=== PATIENT | female | born 1940 | race Caucasian/White ===

== ENCOUNTER 2016-05-11 15:39 | Emergency (ER) | payer MEDICARE ==
[~2016-05-11] VITALS: Ht 165.1 cm; Wt 101.4 kg
[~2016-05-11 15:39] MED LIST: AMLO5TAB22 PO; BIOT10004 PO; CALCTAB5 PO; CHLO25TA24 PO; COUM1TAB PO; K-TA10TA5 PO; LISI-363 PO; LUTE20CA PO; MAGN250T3 PO; METO25 PO; OMEG100037 PO; VITA500T83 PO; WARF-20 PO; [UNRECOGNIZED DRUG - CODE] PO
[2016-05-11 15:48] VITALS: BP 145/74; PULSE 69; RESP 16; TEMP 99.2; O2SAT 96
[2016-05-11] MEDS ORDERED: K-TA10TA PO (16:16)
[2016-05-11] MEDS ORDERED: LISI-515 PO (16:16)
[2016-05-11] MEDS ORDERED: COUM4TAB PO (16:16)
[2016-05-11] MEDS ORDERED: METO25TA3 PO (16:16)
[2016-05-11] MEDS ORDERED: FURO1TAB60 PO (16:16)
[2016-05-11] MEDS ORDERED: AMLO2.5T PO (16:17)
[2016-05-11 16:37] LABS: AUTOMATED NEUTROPHIL # 4.7 TH/MM3 (1.8-7.7); BASOPHIL % 0.3 % (0.0-2.0); EOSINOPHIL # 0.1 TH/MM3 (0-0.4); EOSINOPHIL % 1.8 % (0.0-4.0); HEMO FLAGS DIFF FINAL; LYMPH % 25.5 % (9.0-44.0); LYMPHOCYTE # 1.8 TH/MM3 (1.0-4.8); MEAN CELL VOLUME 79.9 FL (80.0-100.0); MEAN CORPUSCULAR HEMOGLOBIN 27.5 PG (27.0-34.0); MEAN CORPUSCULAR HGB CONC 34.5 % (32.0-36.0); MONO % 7.1 % (0.0-8.0); NEUT % 65.3 % (16.0-70.0); PLATELET COUNT 260 TH/MM3 (150-450); RED BLOOD COUNT 5.01 MIL/MM3 (4.00-5.30); RED CELL DISTRIBUTION WIDTH 12.3 % (11.6-17.2); WHITE BLOOD COUNT 7.1 TH/MM3 (4.0-11.0)
[2016-05-11 16:48] LABS: CHLORIDE 105 MEQ/L (98-107); POTASSIUM 4.2 MEQ/L (3.5-5.1); SODIUM (NA) 143 MEQ/L (136-145)
[2016-05-11 16:51] LABS: ANION GAP 7 MEQ/L (5-15); BICARBONATE 30.8 MEQ/L (21.0-32.0)
[2016-05-11 16:52] LABS: APTT (PATIENT) 35.9 SEC (24.3-30.1); BLOOD UREA NITROGEN 20 MG/DL (7-18); INTERNATIONAL NORMALIZED RATIO 2.2 RATIO; PROTHROMBIN TIME - PATIENT 25.1 SEC (9.8-11.6)
[2016-05-11 16:54] LABS: ALT (GPT) 28 U/L (10-53)
[2016-05-11 16:55] LABS: AST (GOT) 25 U/L (15-37); GLOMERULAR FILTRATION RATE 60 ML/MIN (>89)
[2016-05-11 16:56] LABS: TOTAL BILIRUBIN ADULT 0.9 MG/DL (0.2-1.0)
[2016-05-11 16:57] LABS: ALKALINE PHOSPHATASE 80 U/L (45-117)
--- NOTE | 2016-05-11 17:06 | PD ---
HPI Chief Complaint: Abnormal Results Time Seen by Provider: 15:54 Travel History International Travel<30 days: No Contact w/Intl Traveler<30days: No Traveled to known affect area: No History of Present Illness HPI This 76 year-old woman who presents to the emergency department referred in for an elevated potassium on a routine blood draw. They report that her potassium was 7.2. She has no symptoms. She states other than she feels a little bit tired. She is taking Lasix 40 mg daily as well as 10 mEq of potassium. She switched back to that from chlorthalidone about a couple weeks ago. She has A. fib she takes warfarin which is why she was getting INR drawn. She does take lisinopril for hypertension. She has some ankle swelling that been about the same as it typically has been recently. No change in urination. No palpitations or weakness. No other complaints. History Past Medical History Narrative Medical Lower extremity edema, on Lasix A. fib, on warfarin Hypertension Tetanus Vaccination: > 5 Years Influenza Vaccination: No Social History Alcohol Use: No Tobacco Use: No Allergies-Medications (Allergen,Severity, Reaction): Coded Allergies: No Known Allergies (Verified , 05/11/16) Reported Meds & Prescriptions Reported Meds & Active Scripts Active Reported Amlodipine (Amlodipine Besylate) 2.5 Mg Tab 2.5 Mg PO DAILY Lisinopril 20 Mg Tab 20 Mg PO BID K-Tab (Potassium Chloride) 10 Meq Tab 10 Meq PO DAILY Lasix (Furosemide) 40 Mg Tab 40 Mg PO DAILY Coumadin (Warfarin) 4 Mg Tab 4 Mg PO DAILY Metoprolol Tartrate 25 Mg Tab 25 Mg PO BID Review of Systems Except as stated in HPI: all other systems reviewed are Neg Physical Exam Narrative GENERAL: Well-appearing 76 old woman, no acute distress. SKIN: Warm and dry. HEAD: Atraumatic. Normocephalic. EYES: Pupils equal and round. No scleral icterus. No injection or drainage. ENT: No nasal bleeding or discharge. Mucous membranes pink and moist. NECK: Trachea midline. No JVD. CARDIOVASCULAR: Regular rate and rhythm. No murmur appreciated. RESPIRATORY: No accessory muscle use. Clear to auscultation. Breath sounds equal bilaterally. GASTROINTESTINAL: Abdomen soft, non-tender, nondistended. Hepatic and splenic margins not palpable. MUSCULOSKELETAL: No obvious deformities. No clubbing. No cyanosis. No edema. NEUROLOGICAL: Awake and alert. No obvious cranial nerve deficits. Motor grossly within normal limits. Normal speech. PSYCHIATRIC: Appropriate mood and affect; insight and judgment normal. Data Data Last Documented VS Vital Signs Date Time Temp Pulse Resp B/P Pulse Ox O2 Delivery O2 Flow Rate FiO2 05/11/16 15:48 99.2 69 16 145/74 96 Orders Complete Blood Count With Diff (05/11/16 15:55) Comprehensive Metabolic Panel (05/11/16 15:55) Act Partial Throm Time (Ptt) (05/11/16 15:55) Prothrombin Time / Inr (Pt) (05/11/16 15:55) Electrocardiogram (05/11/16 ) Iv Access Insert/Monitor (05/11/16 15:55) Labs Laboratory Tests Test 05/11/16 16:25 White Blood Count 7.1 TH/MM3 Red Blood Count 5.01 MIL/MM3 Hemoglobin 13.8 GM/DL Hematocrit 40.0 % Mean Corpuscular Volume 79.9 FL Mean Corpuscular Hemoglobin 27.5 PG Mean Corpuscular Hemoglobin 34.5 % Concent Red Cell Distribution Width 12.3 % Platelet Count 260 TH/MM3 Mean Platelet Volume 7.4 FL Neutrophils (%) (Auto) 65.3 % Lymphocytes (%) (Auto) 25.5 % Monocytes (%) (Auto) 7.1 % Eosinophils (%) (Auto) 1.8 % Basophils (%) (Auto) 0.3 % Neutrophils # (Auto) 4.7 TH/MM3 Lymphocytes # (Auto) 1.8 TH/MM3 Monocytes # (Auto) 0.5 TH/MM3 Eosinophils # (Auto) 0.1 TH/MM3 Basophils # (Auto) 0.0 TH/MM3 CBC Comment DIFF FINAL Differential Comment Prothrombin Time 25.1 SEC Prothromb Time International 2.2 RATIO Ratio Activated Partial 35.9 SEC Thromboplast Time Sodium Level 143 MEQ/L Potassium Level 4.2 MEQ/L Chloride Level 105 MEQ/L Carbon Dioxide Level 30.8 MEQ/L Anion Gap 7 MEQ/L Blood Urea Nitrogen 20 MG/DL Creatinine 0.92 MG/DL Estimat Glomerular Filtration 60 ML/MIN Rate Random Glucose 116 MG/DL Calcium Level 8.9 MG/DL Total Bilirubin 0.9 MG/DL Aspartate Amino Transf 25 U/L (AST/SGOT) Alanine Aminotransferase 28 U/L (ALT/SGPT) Alkaline Phosphatase 80 U/L Total Protein 7.2 GM/DL Albumin 3.5 GM/DL [facility] Medical Decision Making Medical Screen Exam Complete: Yes Emergency Medical Condition: Yes Interpretation(s) My review of EKG: Normal sinus rhythm at a rate of 64, left axis deviation, no definite evidence of acute ischemia. No evidence of hyperkalemia. CBC is unremarkable. CMP is unremarkable. Potassium is4.2. INR is 2.2 Differential Diagnosis Hyperkalemia, spurious lab, renal failure, other Narrative Course Medical decision making 76 year-old woman with no real symptoms, elevated potassium 7.2 on routine labs. Repeated here, potassium is normal. Previous lab is likely spurious or hemolyzed. Recommend outpatient follow-up. Diagnosis Primary Impression: Abnormal laboratory test Additional Instructions: Follow-up with her primary doctor in the next 2-4 days. Return to the emergency department for any new or worsening symptoms. Disposition: 01 DISCHARGE HOME Condition: Stable Juan Luis Grimes MD May 11, 2016 17:06
[2016-05-11 17:13] VITALS: BP 138/74
--- NOTE | 2016-05-12 12:49 | EKG ---
Date Performed: 05/11/2016 Time Performed: 16:35:34 PTAGE: 76 years EKG: Sinus rhythm with 1st degree A-V block Left axis deviation Incomplete RBBB Since previous tracing, no significant change noted Abnormal ECG PREVIOUS TRACING : 08/15/2015 07.10 DOCTOR: Brennan Haque Interpretating Date/Time 05/12/2016 12:48:52
== END 2016-05-11 17:15 | disposition home or self-care (01) ==
LOC: PHED 15:39
DX: E87.5 Hyperkalemia (principal); I10 Essential (primary) hypertension; R60.0 Localized edema; I48.91 Unspecified atrial fibrillation; I44.0 Atrioventricular block, first degree; I45.10 Unspecified right bundle-branch block; Z79.01 Long term (current) use of anticoagulants
CPT/HCPCS: 80053; 85025; 85610; 85730; 93005

== ENCOUNTER 2017-03-10 18:33 | Inpatient (IN) | payer MEDICARE ==
[~2017-03-10] VITALS: Ht 162.6 cm; Wt 96.7 kg
[~2017-03-10 18:33] MED LIST changes: +AMLO2.5T PO; -AMLO5TAB22 PO; -BIOT10004 PO; -CALCTAB5 PO; -CHLO25TA24 PO; -COUM1TAB PO; +COUM4TAB PO; +FURO1TAB60 PO; +K-TA10TA PO; -K-TA10TA5 PO; -LISI-363 PO; +LISI-515 PO; -LUTE20CA PO; -MAGN250T3 PO; -METO25 PO; +METO25TA3 PO; -OMEG100037 PO; -VITA500T83 PO; -WARF-20 PO; -[UNRECOGNIZED DRUG - CODE] PO
[2017-03-10 18:42] VITALS: BP 143/70; PULSE 73; RESP 17; TEMP 98.2; O2SAT 87
[2017-03-10 18:50] VITALS: O2SAT 97
[2017-03-10] MEDS ORDERED: WARF-23 PO (18:50)
[2017-03-10] MEDS ORDERED: SODIUM CHLORIDE 0.9% FLUSH 10 ML FLUSH IVF PRN (19:00)
--- NOTE | 2017-03-10 19:04 | PD ---
HPI Chief Complaint: Injury Time Seen by Provider: 19:00 Travel History International Travel<30 days: No Contact w/Intl Traveler<30days: No Traveled to known affect area: No History of Present Illness HPI 77-year-old female presents to the emergency department via EMS for evaluation after a fall that occurred just prior to arrival. Patient states her shoe got caught in the plastic over her crispness tree and she tripped and fell landing on her right arm. She did hit her head, but denies any loss of consciousness. She does have ecchymosis to the right lower eye orbit. She complaints of right arm pain. She has her arm in a splint by EMS. Patient received morphine 6 mg IV prior to arrival for pain. Patient denies any neck pain or back pain. No chest pain or abdominal pain. Nausea, vomiting, diarrhea. She has history of hypertension a show fibrillation. She is on Coumadin. Patient denies any hip or pelvic pain. Patient currently rates the pain 6/10 down from 10/10. The pain is stabbing. No radiation. The pain is in the right humerus and right forearm. Moderate severity. PFSH Past Medical History Hx Anticoagulant Therapy: Yes Arthritis: Yes Atrial Fibrillation: Yes Autoimmune Disease: No Blood Disorders: No Cancer: No Cardiovascular Problems: Yes (htn on meds, a-fib) Diabetes: Yes (borderline) Patient Takes Glucophage: No Diminished Hearing: No Endocrine: No Genitourinary: Yes (FREQUENT URINATION) Headaches: Yes Hepatitis: No Hiatal Hernia: No Hypertension: Yes Immune Disorder: No Musculoskeletal: Yes (PAIN AND WEAKNESS BACK) Neurologic: No Psychiatric: No Reproductive: No Respiratory: No Thyroid Disease: No Tetanus Vaccination: > 5 Years Influenza Vaccination: No ?: Not Past Surgical History Abdominal Surgery: Yes (APPENDECTOMY) AICD: No Appendectomy: Yes Cardiac Surgery: No Cholecystectomy: Yes Ear Surgery: No Endocrine Surgery: No Eye Surgery: No Gynecologic Surgery: Yes (REPAIR PELVIC PROLAPSE) Joint Replacement: Yes ([place] TKR) Neurologic Surgery: No Oral Surgery: No Pacemaker: No Thoracic Surgery: No Other Surgery: Yes Social History Alcohol Use: No Tobacco Use: No Substance Use: No Allergies-Medications (Allergen,Severity, Reaction): Coded Allergies: No Known Allergies (Verified Adverse Reaction, Unknown, 03/10/17) Reported Meds & Prescriptions Reported Meds & Active Scripts Active Reported Warfarin 5 Mg Tab 5 Mg PO DAILY Amlodipine (Amlodipine Besylate) 2.5 Mg Tab 2.5 Mg PO DAILY Lisinopril 20 Mg Tab 20 Mg PO BID K-Tab (Potassium Chloride) 10 Meq Tab 10 Meq PO EVERY OTHER DAY Lasix (Furosemide) 40 Mg Tab 40 Mg PO DAILY Coumadin (Warfarin) 4 Mg Tab 4 Mg PO DAILY 5 Days Metoprolol Tartrate 25 Mg Tab 25 Mg PO BID Review of Systems Except as stated in HPI: all other systems reviewed are Neg Physical Exam Narrative GENERAL: Well-nourished, well-developed female patient, afebrile. SKIN: Focused skin assessment warm/dry. HEAD: Normocephalic. Atraumatic. EYES: No scleral icterus. No injection or drainage. ENT: Mucosa pink and moist. No erythema or exudates. No uvular edema. No uvular , palatal, or tonsillar deviation. Airway patent. Nasal turbinates appear normal without nasal blood, purulent drainage or septal hematoma. Bilateral tympanic membranes are clear without erythema or perforation. NECK: Supple, trachea midline. No JVD or lymphadenopathy. CARDIOVASCULAR: Regular rate and rhythm without murmurs, gallops, or rubs. I lateral radial and pedal pulses are 2+. RESPIRATORY: Breath sounds equal bilaterally. No accessory muscle use. Lungs sounds are clear to auscultation. GASTROINTESTINAL: Abdomen soft, non-tender, nondistended. MUSCULOSKELETAL: No cyanosis, or edema. Patient has tenderness over right humerus and mild tenderness over right forearm. BACK: Nontender without obvious deformity. No CVA tenderness. Data Data Last Documented VS Vital Signs Date Time Temp Pulse Resp B/P (MAP) Pulse Ox O2 Delivery O2 Flow Rate FiO2 03/10/17 20:55 65 16 133/61 (85) 97 Room Air 03/10/17 18:52 2.00 03/10/17 18:42 98.2 Orders Orders Basic Metabolic Panel (Bmp) (03/10/17 18:57) Complete Blood Count With Diff (03/10/17 18:57) Prothrombin Time / Inr (Pt) (03/10/17 18:57) Act Partial Throm Time (Ptt) (03/10/17 18:57) Chest, Single Ap (03/10/17 18:57) Ct Brain W/O Iv Contrast(Rout) (03/10/17 18:57) Ct Cerv Spine W/O Contrast (03/10/17 18:57) Ct Facial Bones W/O Iv Cont (03/10/17 18:57) Iv Access Insert/Monitor (03/10/17 18:57) Ecg Monitoring (03/10/17 18:57) Oximetry (03/10/17 18:57) Oxygen Administration (03/10/17 18:57) Sodium Chloride 0.9% Flush (Ns Flush) (03/10/17 19:00) Humerus (Min 2vws) (03/10/17 ) Forearm, One View (03/10/17 ) Morphine Inj (Morphine Inj) (03/10/17 20:15) Splint Or Brace Apply/Monitor (03/10/17 21:16) Morphine Inj (Morphine Inj) (03/10/17 22:00) Humerus (Min 2vws) (03/10/17 ) Type And Screen (03/10/17 22:36) Fresh Frozen Plasma (Ffp) (03/10/17 22:36) Blood Product Administration (03/10/17 22:36) Sodium Chlor 0.9% 250 Ml Inj (Ns 250 Ml (03/10/17 22:45) Phytonadione Inj (Vitamin K Inj) (03/10/17 22:45) Npo After Midnight W/ Po Meds (03/11/17 Breakfast) Prothrombin Time / Inr (Pt) (03/11/17 05:00) Consult Orthopedic (03/10/17 ) Electrocardiogram (03/10/17 ) Splint Or Brace Apply/Monitor (03/10/17 22:39) Admit Order (Ed Use Only) (03/10/17 22:39) Labs Laboratory Tests Test 03/10/17 20:10 White Blood Count 11.5 TH/MM3 Red Blood Count 4.89 MIL/MM3 Hemoglobin 13.2 GM/DL Hematocrit 40.1 % Mean Corpuscular Volume 82.0 FL Mean Corpuscular Hemoglobin 27.1 PG Mean Corpuscular Hemoglobin Concent 33.0 % Red Cell Distribution Width 14.2 % Platelet Count 209 TH/MM3 Mean Platelet Volume 8.0 FL Neutrophils (%) (Auto) 85.8 % Lymphocytes (%) (Auto) 9.0 % Monocytes (%) (Auto) 4.9 % Eosinophils (%) (Auto) 0.2 % Basophils (%) (Auto) 0.1 % Neutrophils # (Auto) 9.9 TH/MM3 Lymphocytes # (Auto) 1.0 TH/MM3 Monocytes # (Auto) 0.6 TH/MM3 Eosinophils # (Auto) 0.0 TH/MM3 Basophils # (Auto) 0.0 TH/MM3 CBC Comment DIFF FINAL Differential Comment Prothrombin Time 23.8 SEC Prothromb Time International Ratio 2.4 RATIO Activated Partial Thromboplast Time 36.8 SEC Blood Urea Nitrogen 23 MG/DL Creatinine 0.75 MG/DL Random Glucose 155 MG/DL Calcium Level 8.7 MG/DL Sodium Level 140 MEQ/L Potassium Level 4.0 MEQ/L Chloride Level 106 MEQ/L Carbon Dioxide Level 25.8 MEQ/L Anion Gap 8 MEQ/L Estimat Glomerular Filtration Rate 75 ML/MIN MDM Medical Decision Making Medical Screen Exam Complete: Yes Emergency Medical Condition: Yes Medical Record Reviewed: Yes Interpretation(s) CT brain CONCLUSION: 1. No acute infarct, acute hemorrhage, mass effect or extra axial fluid collections. 2. Mild cerebral atrophy. 3. Mild periventricular and subcortical white matter small vessel ischemic changes bilaterally. CT cervical spine CONCLUSION: 1. No acute fracture or prevertebral soft tissue swelling. 2. Moderate neural foraminal narrowing bilaterally at C5-6. 3. No bony spinal canal stenosis. 4. Cervical spondylosis at C5-6 and to a lesser extent at C4-5 and C3-4. CT facial bones CONCLUSION: 1. No acute facial bone fracture. 2. Mild mucosal thickening within the left maxillary sinus and minimal mucosal thickening within the right maxillary sinus. 3. Right-sided nannette bullosa. X-ray right humerus CONCLUSION: Acute displaced spiral midshaft fracture of the right humerus. X-ray right forearm CONCLUSION: 1. No acute fracture or desiccation of the radius or ulna. 2. Moderate osteoarthritis involving the first carpometacarpal joint. x-ray chest - CONCLUSION: Mild cardiomegaly and minimal central pulmonary vascular congestion. Differential Diagnosis Fracture versus dislocation versus contusion versus sprain versus closed head injury versus intracranial abnormality versus facial contusion versus facial fracture versus cervical strain versus cervical fracture Narrative Course 77-year-old female presents to the emergency department via EMS after she tripped and fell suffering a right arm injury. She is on Coumadin and did hit her head. CT the brain, CT of the facial bones, CT of the cervical spine are ordered and pending. X-ray of the right humerus and right forearm, x-ray of the chest are ordered and pending. CT of the brain shows no acute abnormality. CT of the facial bones shows no acute facial bone fracture. CT of the cervical spine shows no acute fracture. X-ray of the right humerus shows an acute displaced spiral midshaft fracture of the right humerus. X-ray of the right forearm shows no acute fracture. X-ray of the chest shows mild cardiomegaly and minimal central pulmonary vascular congestion. CBC shows slight leukocytosis 11.5. BMP shows no acute abnormality. PTT is 23.8, INR 2.4, PTT 26.8. Orthopedist salesperson furniture is paged. I spoke to Americo Garcia, on-call for Dr. Snyder. He would like a coaptation splint to be applied and then re-x-rayed to see if the bones are better aligned. Coaptation splint is applied. X-ray is repeated. After x-ray was back, I did contact TITO Gibson again. The displacement and angulation actually looks slightly worse after splint is applied. He agrees to this. He would like the patient to be admitted to medicine. He would like sling and swath applied. He would like the patient to receive 10 mg of vitamin K, 1 unit of FFP. The patient is to be nothing by mouth after midnight, INR to be repeated at 5 AM. He would like the INR to be between 1.3-1.4. I discussed this with the patient who verbalizes agreement. Patient is admitted to Dr. Peñaloza. Diagnosis Primary Impression: Closed right humeral fracture Qualified Codes: S42.341A - Displaced spiral fracture of shaft of humerus, right arm, initial encounter for closed fracture Admitting Information Admitting Physician Requests: Jesusita Andre Mar 10, 2017 19:04
[2017-03-10 19:11] VITALS: RESP 18; O2SAT 97
--- NOTE | 2017-03-10 20:04 | RADRPT ---
EXAM DATE/TIME: 03/10/2017 19:47 [facility] COMPARISON: No previous studies available for comparison. INDICATIONS : Trauma, fall today. RADIATION DOSE: 54.20 CTDIvol (mGy) MEDICAL HISTORY : Hypertension. SURGICAL HISTORY : Tubal ligation. ENCOUNTER: Initial ACUITY: 1 day PAIN SCALE: 0/10 LOCATION: Bilateral head TECHNIQUE: Multiple contiguous axial images were obtained of the head. Using automated exposure control and adj ustment of the mA and/or kV according to patient size, radiation dose was kept as low as reasonably a chievable to obtain optimal diagnostic quality images. DICOM format image data is available electro nically for review and comparison. FINDINGS: CEREBRUM: Mild cerebral atrophy is noted. No evidence of midline shift, mass lesion, hemorrhage or acute infarc tion. No extra-axial fluid collections are seen. Mild periventricular and subcortical white matter s mall vessel ischemic changes are noted bilaterally. POSTERIOR FOSSA: The cerebellum and brainstem are intact. The 4th ventricle is midline. The cerebellopontine angle i s unremarkable. EXTRACRANIAL: The visualized portion of the orbits is intact. SKULL: The calvaria is intact. No evidence of skull fracture. CONCLUSION: 1. No acute infarct, acute hemorrhage, mass effect or extra axial fluid collections. 2. Mild cerebral atrophy. 3. Mild periventricular and subcortical white matter small vessel ischemic changes bilaterally. Alvarez Briscoe MD on March 10, 2017 at 20:00 Board Certified Radiologist. This report was verified electronically.
--- NOTE | 2017-03-10 20:11 | RADRPT ---
EXAM DATE/TIME: 03/10/2017 19:47 [facility] COMPARISON: No previous studies available for comparison. INDICATIONS : Trauma, fall today. RADIATION DOSE: 42.99 CTDIvol (mGy) MEDICAL HISTORY : Hypertension. SURGICAL HISTORY : Tubal ligation. ENCOUNTER: Initial ACUITY: 1 day PAIN SCALE: 0/10 LOCATION: Bilateral neck TECHNIQUE: Volumetric scanning of the cervical spine was performed. Multiplanar reconstructions in the sagittal, coronal and oblique axial planes were performed. Using automated exposure control and adjustment o f the mA and/or kV according to patient size, radiation dose was kept as low as reasonably achievable to obtain optimal diagnostic quality images. DICOM format image data is available electronically f or review and comparison. FINDINGS: VERTEBRAE: Normal vertebral body height. ALIGNMENT: No evidence of subluxation. C2-C3: The bony spinal canal is normal in size. No evidence of disc bulge or herniation. The neural forami na are bilaterally patent. C3-C4: The bony spinal canal is normal in size. No evidence of disc bulge or herniation. The neural forami na are bilaterally patent. C4-C5: The bony spinal canal is normal in size. No evidence of disc bulge or herniation. The neural forami na are bilaterally patent. C5-C6: The bony spinal canal is normal in size. No evidence of disc bulge or herniation. Moderate neural fo raminal narrowing is noted bilaterally. C6-C7: The bony spinal canal is normal in size. No evidence of disc bulge or herniation. The neural forami na are bilaterally patent. C7-T1: The bony spinal canal is normal in size. No evidence of disc bulge or herniation. The neural forami na are bilaterally patent. CONCLUSION: 1. No acute fracture or prevertebral soft tissue swelling. 2. Moderate neural foraminal narrowing bilaterally at C5-6. 3. No bony spinal canal stenosis. 4. Cervical spondylosis at C5-6 and to a lesser extent at C4-5 and C3-4. Alvarez Briscoe MD on March 10, 2017 at 20:06 Board Certified Radiologist. This report was verified electronically.
--- NOTE | 2017-03-10 20:14 | RADRPT ---
EXAM DATE/TIME: 03/10/2017 19:47 [facility] COMPARISON: No previous studies available for comparison. INDICATIONS : Trauma, fall today. RADIATION DOSE: 56.76 CTDIvol (mGy) MEDICAL HISTORY : Hypertension. SURGICAL HISTORY : Tubal ligation. ENCOUNTER: Initial ACUITY: 1 day PAIN SCORE: 0/10 LOCATION: Bilateral face TECHNIQUE: Volumetric scanning of the facial bones was performed. Using automated exposure control and adjustme nt of the mA and/or kV according to patient size, radiation dose was kept as low as reasonably achiev able to obtain optimal diagnostic quality images. DICOM format image data is available electronicall y for review and comparison. FINDINGS: ORBITS: The orbital and infraorbital osseous structures are intact. The retroconal structures have a normal configuration. No radiopaque foreign bodies are seen. NASAL BONE: The nasal bone and maxillary spine are intact ZYGOMATIC ARCHES: Symmetric without evidence of fracture. SINUSES: Mild mucosal thickening is noted within the left maxillary sinus. Minimal mucosal thickening is noted within the right maxillary sinus. The ethmoid and frontal sinuses are intact. No air-fluid levels s een. NASAL CAVITY: The nasal septum is intact and midline. The lacrimal ducts are intact. Right-sided nannette bullosa is noted. SOFT TISSUES: No radiopaque foreign bodies seen. No soft-tissue swelling is seen. INTRACRANIAL: No intracranial air seen. CRIBIFORM PLATE: Grossly intact. CONCLUSION: 1. No acute facial bone fracture. 2. Mild mucosal thickening within the left maxillary sinus and minimal mucosal thickening within the right maxillary sinus. 3. Right-sided nannette bullosa. Alvarez Briscoe MD on March 10, 2017 at 20:09 Board Certified Radiologist. This report was verified electronically.
[2017-03-10] MEDS ORDERED: MORPHINE SULFATE 4 MG/ML INJ IV PUSH ONE ×2 (20:15→22:00)
[2017-03-10 20:39] LABS: AUTOMATED NEUTROPHIL # 9.9 TH/MM3 (1.8-7.7); BASOPHIL % 0.1 % (0.0-2.0); EOSINOPHIL % 0.2 % (0.0-4.0); HEMATOCRIT 40.1 % (35.0-46.0); HEMO FLAGS DIFF FINAL; MEAN CORPUSCULAR HEMOGLOBIN 27.1 PG (27.0-34.0); MONO % 4.9 % (0.0-8.0); NEUT % 85.8 % (16.0-70.0); PLATELET COUNT 209 TH/MM3 (150-450); RED BLOOD COUNT 4.89 MIL/MM3 (4.00-5.30); RED CELL DISTRIBUTION WIDTH 14.2 % (11.6-17.2); WHITE BLOOD COUNT 11.5 TH/MM3 (4.0-11.0)
--- NOTE | 2017-03-10 20:48 | RADRPT ---
EXAM DATE/TIME: 03/10/2017 19:41 [facility] COMPARISON: No previous studies available for comparison. INDICATIONS : Trauma. Patient fell today. MEDICAL HISTORY : Hypertension. A-fib. SURGICAL HISTORY : Appendectomy. Cholecystectomy. Tubal ligation. ENCOUNTER: Initial ACUITY: 1 day PAIN SCORE: 0/10 LOCATION: Bilateral chest FINDINGS: Mild cardiomegaly is noted. Minimal central pulmonary vascular congestion is noted. No acute focal pu lmonary tubes noted. CONCLUSION: Mild cardiomegaly and minimal central pulmonary vascular congestion. Alvarez Briscoe MD on March 10, 2017 at 20:44 Board Certified Radiologist. This report was verified electronically.
[2017-03-10 20:50] LABS: APTT (PATIENT) 36.8 SEC (24.3-30.1); INTERNATIONAL NORMALIZED RATIO 2.4 RATIO; PROTHROMBIN TIME - PATIENT 23.8 SEC (9.8-11.6)
--- NOTE | 2017-03-10 20:50 | RADRPT ---
EXAM DATE/TIME: 03/10/2017 19:30 [facility] COMPARISON: No previous studies available for comparison. INDICATIONS : Right arm pain after fall. MEDICAL HISTORY : None. SURGICAL HISTORY : None. ENCOUNTER: Initial ACUITY: 1 day PAIN SCORE: 10/10 LOCATION: Right humerus. FINDINGS: There is an acute displaced spiral midshaft fracture of the right humerus. CONCLUSION: Acute displaced spiral midshaft fracture of the right humerus. Alvarez Briscoe MD on March 10, 2017 at 20:46 Board Certified Radiologist. This report was verified electronically.
--- NOTE | 2017-03-10 20:51 | RADRPT ---
EXAM DATE/TIME: 03/10/2017 19:33 [facility] COMPARISON: No previous studies available for comparison. INDICATIONS : Right arm pain after fall. MEDICAL HISTORY : None. SURGICAL HISTORY : None. ENCOUNTER: Initial ACUITY: 1 day PAIN SCORE: 5/10 LOCATION: Right forearm. FINDINGS: A single view of the right forearm was performed. The radius and ulna are grossly intact. No soft t issue abnormality is identified. No joint dislocation is seen at the wrist or elbow at this time. Mo derate osteoarthritis is noted involving the first carpometacarpal joint. CONCLUSION: 1. No acute fracture or desiccation of the radius or ulna. 2. Moderate osteoarthritis involving the first carpometacarpal joint. Alvarez Briscoe MD on March 10, 2017 at 20:47 Board Certified Radiologist. This report was verified electronically.
[2017-03-10 20:55] VITALS: BP 133/61; PULSE 65; RESP 16; O2SAT 97
[2017-03-10 21:18] LABS: BICARBONATE 25.8 MEQ/L (21.0-32.0)
--- NOTE | 2017-03-10 22:30 | RADRPT ---
EXAM DATE/TIME: 03/10/2017 22:15 [facility] COMPARISON: HUMERUS RIGHT (MIN 2VWS), March 10, 2017, 19:30. INDICATIONS : Post reduction humerus. MEDICAL HISTORY : Hypertension. SURGICAL HISTORY : Tubal ligation. ENCOUNTER: Subsequent ACUITY: 1 day PAIN SCORE: 10/10 LOCATION: Right humerus. FINDINGS: There is persistent significant displacement of the spiral midshaft fracture of the right humerus. CONCLUSION: Persistent significant displacement of the spiral midshaft fracture of right humerus. Alvarez Briscoe MD on March 10, 2017 at 22:26 Board Certified Radiologist. This report was verified electronically.
[2017-03-10] MEDS ORDERED: PHYTONADIONE 10 MG/ML VIAL SQ ONE (22:45)
[2017-03-10] MEDS ORDERED: SODIUM CHLOR 0.9% 250 ML INJ 250 ML IV ONE (22:45)
[2017-03-10] MEDS ORDERED: SENNOSIDES 8.6 MG TAB PO PRN (23:30)
[2017-03-10] MEDS ORDERED: BISACODYL 10 MG SUPP RECTAL PRN (23:30)
[2017-03-10] MEDS ORDERED: LACTULOSE SYRUP 20 GM/30 ML CUP PO PRN (23:30)
[2017-03-10] MEDS ORDERED: NALOXONE HCL 0.4 MG/ML AMP IV PUSH PRN (23:30)
[2017-03-10] MEDS ORDERED: ONDANSETRON HCL 4 MG/2 ML VIAL IVP PRN (23:30)
[2017-03-10] MEDS ORDERED: SODIUM CHLORIDE 0.9% FLUSH 10 ML FLUSH IV FLUSH PRN (23:30)
[2017-03-10] MEDS ORDERED: MAGNESIUM HYDROXIDE SUSP 30 ML CUP PO PRN (23:30)
[2017-03-10 23:36] VITALS: BP 134/67; PULSE 72; RESP 18; O2SAT 97
--- NOTE | 2017-03-10 23:37 | HHI.HP ---
HPI Service [facility] Hospitalists Primary Care Physician Margret Lincoln MD Admission Diagnosis right midshaft humeral fracture Chief Complaint: accidental fall at home with pain to humerus Travel History International Travel<30 Days: No Contact w/Intl Traveler <30 Da: No Traveled to Known Affected Are: No History of Present Illness 77-year-old female presents to the emergency department via EMS for evaluation after a fall that occurred just prior to arrival. Patient states her shoe got caught in the plastic over her [employer] tree and she tripped and fell landing on her right arm. She did hit her head, but denies any loss of consciousness. She does have ecchymosis to the right lower eye orbit. She complaints of right arm pain. She has her arm in a splint by EMS. Patient received morphine 6 mg IV prior to arrival for pain. Patient denies any neck pain or back pain. No chest pain or abdominal pain. Nausea, vomiting, diarrhea. She has history of hypertension and atrial fibrillation. She is on Coumadin. Patient denies any hip or pelvic pain. Patient currently rates the pain 6/10 down from 10/10. The pain is stabbing. No radiation. The pain is in the right humerus and right forearm. Moderate severity. Full xrays of neck head no acute abnormalities but xray humerus shows fracture splinted and will require surgery. Review of Systems Musculoskeletal: COMPLAINS OF: Joint pain Past Family Social History Past Medical History hypertension,atrail fib chronic coumadin Past Surgical History gall bladder appendix,bilateral knee replacement pelvic surgery in past Reported Medications Warfarin 5 Mg Tab 5 Mg PO DAILY Amlodipine (Amlodipine Besylate) 2.5 Mg Tab 2.5 Mg PO DAILY Lisinopril 20 Mg Tab 20 Mg PO BID K-Tab (Potassium Chloride) 10 Meq Tab 10 Meq PO EVERY OTHER DAY Lasix (Furosemide) 40 Mg Tab 40 Mg PO DAILY Coumadin (Warfarin) 4 Mg Tab 4 Mg PO DAILY 5 Days Metoprolol Tartrate 25 Mg Tab 25 Mg PO BID Allergies: Coded Allergies: No Known Allergies (Verified Adverse Reaction, Unknown, 03/10/17) Social History NS,ND Physical Exam Vital Signs Vital Signs Date Time Temp Pulse Resp B/P (MAP) Pulse Ox O2 Delivery O2 Flow Rate FiO2 03/10/17 20:55 65 16 133/61 (85) 97 Room Air 03/10/17 19:11 97 Room Air 03/10/17 19:11 18 97 Room Air 03/10/17 18:52 59 18 97 2.00 03/10/17 18:50 97 Nasal Cannula 3.00 03/10/17 18:42 98.2 73 17 143/70 (94) 87 Physical Exam GENERAL: This is a well-nourished, well-developed patient, in no apparent distress. SKIN: No rashes, ecchymoses or lesions. Cool and dry. HEAD: Atraumatic. Normocephalic. No temporal or scalp tenderness. EYES: Pupils equal round and reactive. Extraocular motions intact. No scleral icterus. No injection or drainage. ENT: Nose without bleeding, purulent drainage or septal hematoma. Throat without erythema, tonsillar hypertrophy or exudate. Uvula midline. Airway patent. NECK: Trachea midline. No JVD or lymphadenopathy. Supple, nontender, no meningeal signs. CARDIOVASCULAR: Regular rate and rhythm without murmurs, gallops, or rubs. RESPIRATORY: Clear to auscultation. Breath sounds equal bilaterally. No wheezes , rales, or rhonchi. GASTROINTESTINAL: Abdomen soft, non-tender, nondistended. No hepato-splenomegaly , or palpable masses. No guarding. MUSCULOSKELETAL: Extremities without clubbing, cyanosis, or edema. RT arm pain on movement effusion, or edema noted. No calf tenderness. Negative Homans sign bilaterally. NEUROLOGICAL: Awake and alert. Cranial nerves II through XII intact. Motor and sensory grossly within normal limits. Five out of 5 muscle strength in all muscle groups. Normal speech. Laboratory Laboratory Tests Test 03/10/17 20:10 White Blood Count 11.5 Red Blood Count 4.89 Hemoglobin 13.2 Hematocrit 40.1 Mean Corpuscular Volume 82.0 Mean Corpuscular Hemoglobin 27.1 Mean Corpuscular Hemoglobin Concent 33.0 Red Cell Distribution Width 14.2 Platelet Count 209 Mean Platelet Volume 8.0 Neutrophils (%) (Auto) 85.8 Lymphocytes (%) (Auto) 9.0 Monocytes (%) (Auto) 4.9 Eosinophils (%) (Auto) 0.2 Basophils (%) (Auto) 0.1 Neutrophils # (Auto) 9.9 Lymphocytes # (Auto) 1.0 Monocytes # (Auto) 0.6 Eosinophils # (Auto) 0.0 Basophils # (Auto) 0.0 CBC Comment DIFF FINAL Differential Comment Prothrombin Time 23.8 Prothromb Time International Ratio 2.4 Activated Partial Thromboplast Time 36.8 Blood Urea Nitrogen 23 Creatinine 0.75 Random Glucose 155 Calcium Level 8.7 Sodium Level 140 Potassium Level 4.0 Chloride Level 106 Carbon Dioxide Level 25.8 Anion Gap 8 Estimat Glomerular Filtration Rate 75 Result Diagram: 03/10/17200903/10/172009 Imaging Last [address] 03/10/171856 Signed Impressions: Service Date/Time: Friday, March 10, 2017 19:47 - CONCLUSION: 1. No acute facial bone fracture. 2. Mild mucosal thickening within the left maxillary sinus and minimal mucosal thickening within the right maxillary sinus. 3. Right-sided nannette bullosa. Alvarez Briscoe MD Head CT 03/10/171856 Signed Impressions: Service Date/Time: Friday, March 10, 2017 19:47 - CONCLUSION: 1. No acute infarct, acute hemorrhage, mass effect or extra axial fluid collections. 2. Mild cerebral atrophy. 3. Mild periventricular and subcortical white matter small vessel ischemic changes bilaterally. Alvarez Briscoe MD Chest X-Ray 03/10/171856 Signed Impressions: Service Date/Time: Friday, March 10, 2017 19:41 - CONCLUSION: Mild cardiomegaly and minimal central pulmonary vascular congestion. Alvarez Briscoe MD Cervical Spine CT 03/10/171856 Signed Impressions: Service Date/Time: Friday, March 10, 2017 19:47 - CONCLUSION: 1. No acute fracture or prevertebral soft tissue swelling. 2. Moderate neural foraminal narrowing bilaterally at C5-6. 3. No bony spinal canal stenosis. 4. Cervical spondylosis at C5-6 and to a lesser extent at C4-5 and C3-4. Alvarez Briscoe MD Radius/Ulna X-Ray 03/10/17 0000 Signed Impressions: Service Date/Time: Friday, March 10, 2017 19:33 - CONCLUSION: 1. No acute fracture or desiccation of the radius or ulna. 2. Moderate osteoarthritis involving the first carpometacarpal joint. Alvarez Briscoe MD Humerus X-Ray 03/10/17 0000 Signed Impressions: Service Date/Time: Friday, March 10, 2017 22:15 - CONCLUSION: Persistent significant displacement of the spiral midshaft fracture of right humerus. Alvarez Briscoe MD Humerus X-Ray 03/10/17 0000 Signed Impressions: Service Date/Time: Friday, March 10, 2017 19:30 - CONCLUSION: Acute displaced spiral midshaft fracture of the right humerus. Alvarez Briscoe MD Course splint and given pain medication is on coumadin given vit k and will get FFP Caprini VTE Risk Assessment Caprini VTE Risk Assessment: Mod/High Risk (score >= 2) Caprini Risk Assessment Model Point Value = 1 Point Value = 2 Point Value = 3 Point Value = 5 Age 41-60 Minor surgery BMI > 25 kg/m2 Swollen legs Varicose veins or History of unexplained or recurrent spontaneous Oral contraceptives or hormone replacement Sepsis (< 1 month) Serious lung disease, including pneumonia (< 1 month) Abnormal pulmonary function Acute myocardial infarction Congestive heart failure (< 1 month) History of inflammatory bowel disease Medical patient at bed rest Age 61-74 Arthroscopic surgery Major open surgery (> 45 min) Laparoscopic surgery (> 45 min) Malignancy Confined to bed (> 72 hours) Immobilizing plaster cast Central venous access Age >= 75 History of VTE Family history of VTE Factor V Leiden Prothrombin [id number] Lupus anticoagulant Anticardiolipin antibodies Elevated serum homocysteine Heparin-induced thrombocytopenia Other congenital or acquired thrombophilia Stroke (< 1 month) Elective arthroplasty Hip, pelvis, or leg fracture Acute spinal cord injury (< 1 month) Prophylaxis Regimen Total Risk Factor Score Risk Level Prophylaxis Regimen 0-1 Low Early ambulation 2 Moderate Order ONE of the following: *Sequential Compression Device (SCD) *Heparin 5000 units SQ BID 3-4 Higher Order ONE of the following medications: *Heparin 5000 units SQ TID *Enoxaparin/Lovenox 40 mg SQ daily (WT < 150 kg, CrCl > 30 mL/min) *Enoxaparin/Lovenox 30 mg SQ daily (WT < 150 kg, CrCl > 10-29 mL/min) *Enoxaparin/Lovenox 30 mg SQ BID (WT < 150 kg, CrCl > 30 mL/min) AND/OR *Sequential Compression Device (SCD) 5 or more Highest Order ONE of the following medications: *Heparin 5000 units SQ TID (Preferred with Epidurals) *Enoxaparin/Lovenox 40 mg SQ daily (WT < 150 kg, CrCl > 30 mL/min) *Enoxaparin/Lovenox 30 mg SQ daily (WT < 150 kg, CrCl > 10-29 mL/min) *Enoxaparin/Lovenox 30 mg SQ BID (WT < 150 kg, CrCl > 30 mL/min) AND *Sequential Compression Device (SCD) Assessment and Plan Problem List: (1) Closed right humeral fracture ICD Codes: S42.301A - Unspecified fracture of shaft of humerus, right arm, initial encounter for closed fracture Status: Acute Plan: ortho consult npo and pain medication (2) Atrial fibrillation ICD Codes: I48.91 - Unspecified atrial fibrillation Status: Chronic Plan: continue b mellissa hold coumadin vit k and FFP (3) Hypertension ICD Codes: I10 - Essential (primary) hypertension Status: Chronic Plan: continue home medications Assessment and Plan further plan as case develops Code Status full Discussed Condition With patient Physician Certification 2 Midnight Certification Type: Admission for Inpatient Services Order for Inpatient Services The services are ordered in accordance with Medicare regulations or non- Medicare payer requirements, as applicable. In the case of services not specified as inpatient-only, they are appropriately provided as inpatient services in accordance with the 2-midnight benchmark. Estimated LOS (days): 3 3 days is the estimated time the patient will need to remain in the hospital, assuming treatment plan goals are met and no additional complications. Post-Hospital Plan: Not yet determined Problem Qualifiers (1) Closed right humeral fracture: Qualified Codes: S42.341A - Displaced spiral fracture of shaft of humerus, right arm, initial encounter for closed fracture Angel Torres MD Mar 10, 2017 23:37
[2017-03-10] MEDS ORDERED: PILL SPLITTER OTHER PRN (23:45)
[2017-03-11] VITALS (21 sets, daily range): BP systolic 100–135; BP diastolic 50–69; PULSE 57–81; RESP 16–19; TEMP 96–99.9; O2SAT 92–96
[2017-03-11] MEDS ORDERED: LACTATED RINGER'S 1000 ML IV PRN (01:15)
[2017-03-11] MEDS ORDERED: SODIUM CHLORID 0.9% 500 ML IV PRN (01:15)
[2017-03-11] MEDS ORDERED: POVIDONE IODINE 5% (ANTISEPSIS KIT) 4 APPLICATIONS EACH NARE PRN (01:15)
[2017-03-11] MEDS ORDERED: CHLORHEXIDINE GLUCONATE 2 % 1 PACK (2 CLOTHS) TOPICAL PRN (01:15)
[2017-03-11 04:51] LABS: INTERNATIONAL NORMALIZED RATIO 1.7 RATIO; PROTHROMBIN TIME - PATIENT 17.7 SEC (9.8-11.6)
--- NOTE | 2017-03-11 06:51 | PD.ORT.PN ---
Subjective Subjective Remarks Fall at home when decorating [employer] tree. Right humerus fracture. Denies any numbness or tingling distally Objective Vitals Vital Signs Date Time Temp Pulse Resp B/P (MAP) Pulse Ox O2 Delivery O2 Flow Rate FiO2 03/11/17 04:57 96.7 60 17 112/54 93 03/11/17 03:58 57 03/11/17 02:27 96.0 59 17 113/50 95 03/11/17 02:10 96.2 62 17 113/55 95 03/11/17 02:10 96.2 62 17 113/55 (74) 95 03/11/17 01:49 62 126/63 (84) 03/11/17 01:48 57 03/11/17 01:02 03/10/17 23:36 72 18 134/67 (89) 97 Room Air 03/10/17 20:55 65 16 133/61 (85) 97 Room Air 03/10/17 19:11 97 Room Air 03/10/17 19:11 18 97 Room Air 03/10/17 18:52 59 18 97 2.00 03/10/17 18:50 97 Nasal Cannula 3.00 03/10/17 18:42 98.2 73 17 143/70 (94) 87 I/O 03/10/17 03/10/17 03/10/17 03/11/17 03/11/17 03/11/17 07:00 15:00 23:00 07:00 15:00 23:00 Intake Total 965 ml Balance 965 ml Intake FFP 340 ml Blood Product IV Normal Saline Flush 625 ml Result Diagram: 03/10/17200903/10/172009 Other Results Laboratory Tests Test 03/10/17 20:10 03/11/17 04:11 Prothromb Time International Ratio 2.4 RATIO 1.7 RATIO Prothrombin Time 23.8 SEC (9.8-11.6) 17.7 SEC (9.8-11.6) Imaging Last [address] 03/10/17 5770 Signed Impressions: Service Date/Time: Friday, March 10, 2017 19:47 - CONCLUSION: 1. No acute facial bone fracture. 2. Mild mucosal thickening within the left maxillary sinus and minimal mucosal thickening within the right maxillary sinus. 3. Right-sided nannette bullosa. Alvarez Briscoe MD Head CT 03/10/171856 Signed Impressions: Service Date/Time: Friday, March 10, 2017 19:47 - CONCLUSION: 1. No acute infarct, acute hemorrhage, mass effect or extra axial fluid collections. 2. Mild cerebral atrophy. 3. Mild periventricular and subcortical white matter small vessel ischemic changes bilaterally. Alvarez Briscoe MD Chest X-Ray 03/10/171856 Signed Impressions: Service Date/Time: Friday, March 10, 2017 19:41 - CONCLUSION: Mild cardiomegaly and minimal central pulmonary vascular congestion. Alvarez Briscoe MD Cervical Spine CT 03/10/171856 Signed Impressions: Service Date/Time: Friday, March 10, 2017 19:47 - CONCLUSION: 1. No acute fracture or prevertebral soft tissue swelling. 2. Moderate neural foraminal narrowing bilaterally at C5-6. 3. No bony spinal canal stenosis. 4. Cervical spondylosis at C5-6 and to a lesser extent at C4-5 and C3-4. Alvarez Briscoe MD Objective Remarks Bilateral lower extremity: Full range of motion neurovascular intact Left upper extremity full range of motion neurovascular intact Right upper extremity: Coaptation splint. Distally intact sensation of the radial ulnar median nerve distributions with good capillary refills. Is able fully extend her fingers and make a fist Assessment & Plan Assessment and Plan Right mid shaft oblique fracture humerus Nothing by mouth Surgery this afternoon if medically cleared and INR is corrected. INR is is 1.7 and we will give 1 more unit of FFP. Medical clearance needed. Sign consents Eloy Garcia Jr. Mar 11, 2017 06:51
[2017-03-11] MEDS: LISINOPRIL 20 MG TAB PO SCH ×2 (07:35→20:37)
[2017-03-11] MEDS: METOPROLOL TARTRATE 25 MG TAB PO SCH ×2 (07:36→20:35)
[2017-03-11] MEDS: amLODIPine BESYLATE 5 MG TAB PO SCH ×2 (07:36→07:51)
[2017-03-11] MEDS: SODIUM CHLORIDE 0.9% FLUSH 10 ML FLUSH IV FLUSH SCH ×2 (07:38→20:34)
[2017-03-11] MEDS: DOCUSATE SODIUM 50 MG/SENNA 8.6 MG TAB PO SCH ×2 (07:38→20:35)
[2017-03-11] MEDS ORDERED: FUROSEMIDE 40 MG TAB PO SCH (09:00)
[2017-03-11 12:35] LABS: HEMATOCRIT 32.6 % (35.0-46.0); REVIEW FLAG FINAL
[2017-03-11] MEDS ORDERED: VANCOMYCIN HCL 1000 MG VIAL ONE (12:36)
[2017-03-11] MEDS ORDERED: GENTAMICIN SULFATE 80 MG/2 ML VIAL ONE (12:36)
[2017-03-11 12:51] LABS: APTT (PATIENT) 34.8 SEC (24.3-30.1); INTERNATIONAL NORMALIZED RATIO 1.6 RATIO; PROTHROMBIN TIME - PATIENT 16.1 SEC (9.8-11.6)
--- NOTE | 2017-03-11 12:59 | PD.ORT.PN ---
Subjective Subjective Remarks Fall at home when decorating [place] tree. Right humerus fracture. Denies any numbness or tingling distally Objective Vitals Vital Signs Date Time Temp Pulse Resp B/P (MAP) Pulse Ox O2 Delivery O2 Flow Rate FiO2 03/11/17 11:45 97.7 78 19 113/59 95 03/11/17 11:41 97.7 78 19 113/59 (77) 95 03/11/17 09:45 98.3 64 18 117/61 95 03/11/17 09:30 97.0 61 19 122/63 96 03/11/17 07:24 97.0 61 19 122/63 (82) 96 03/11/17 04:57 96.7 60 17 112/54 93 03/11/17 03:58 57 03/11/17 02:27 96.0 59 17 113/50 95 03/11/17 02:10 96.2 62 17 113/55 95 03/11/17 02:10 96.2 62 17 113/55 (74) 95 03/11/17 01:49 62 126/63 (84) 03/11/17 01:48 57 03/11/17 01:02 03/10/17 23:36 72 18 134/67 (89) 97 Room Air 03/10/17 20:55 65 16 133/61 (85) 97 Room Air 03/10/17 19:11 97 Room Air 03/10/17 19:11 18 97 Room Air 03/10/17 18:52 59 18 97 2.00 03/10/17 18:50 97 Nasal Cannula 3.00 03/10/17 18:42 98.2 73 17 143/70 (94) 87 I/O 03/10/17 03/10/17 03/10/17 03/11/17 03/11/17 03/11/17 07:00 15:00 23:00 07:00 15:00 23:00 Intake Total 965 ml 330 ml Balance 965 ml 330 ml Intake Oral 0 ml FFP 340 ml 315 ml Blood Product IV Normal Saline Flush 625 ml 15 ml # Voids 1 # Bowel Movements 0 Result Diagram: 03/11/17 1210 03/10/172009 Other Results Laboratory Tests Test 03/10/17 20:10 03/11/17 04:11 03/11/17 12:10 Prothromb Time International Ratio 2.4 RATIO 1.7 RATIO 1.6 RATIO Prothrombin Time 23.8 SEC (9.8-11.6) 17.7 SEC (9.8-11.6) 16.1 SEC (9.8-11.6) Imaging Last [address] 03/10/171856 Signed Impressions: Service Date/Time: Friday, March 10, 2017 19:47 - CONCLUSION: 1. No acute facial bone fracture. 2. Mild mucosal thickening within the left maxillary sinus and minimal mucosal thickening within the right maxillary sinus. 3. Right-sided nannette bullosa. Alvarez Briscoe MD Head CT 03/10/171856 Signed Impressions: Service Date/Time: Friday, March 10, 2017 19:47 - CONCLUSION: 1. No acute infarct, acute hemorrhage, mass effect or extra axial fluid collections. 2. Mild cerebral atrophy. 3. Mild periventricular and subcortical white matter small vessel ischemic changes bilaterally. Alvarez Briscoe MD Chest X-Ray 03/10/171856 Signed Impressions: Service Date/Time: Friday, March 10, 2017 19:41 - CONCLUSION: Mild cardiomegaly and minimal central pulmonary vascular congestion. Alvarez Briscoe MD Cervical Spine CT 03/10/171856 Signed Impressions: Service Date/Time: Friday, March 10, 2017 19:47 - CONCLUSION: 1. No acute fracture or prevertebral soft tissue swelling. 2. Moderate neural foraminal narrowing bilaterally at C5-6. 3. No bony spinal canal stenosis. 4. Cervical spondylosis at C5-6 and to a lesser extent at C4-5 and C3-4. Alvarez Briscoe MD Objective Remarks Bilateral lower extremity: Full range of motion neurovascular intact Left upper extremity full range of motion neurovascular intact Right upper extremity: Coaptation splint. Distally intact sensation of the radial ulnar median nerve distributions with good capillary refills. Is able fully extend her fingers and make a fist Assessment & Plan Assessment and Plan Right mid shaft oblique fracture humerus Nothing by mouth Surgery this afternoon if medically cleared and INR is corrected. INR is is 1.7 and we will give 1 more unit of FFP. Medical clearance needed. Sign consents After phone discussion with Dr Murray, he feels that she would be a moderate risk for surgery today. He feels that we can proceed if PT/INR is at a safe value.Labs are drawn and we are awaiting results. Eloy Garcia Jr. TITO Mar 11, 2017 12:59
[2017-03-11] MEDS: MORPHINE SULFATE 4 MG/ML INJ IV PUSH PRN (13:33)
[2017-03-11] MEDS ORDERED: PHYTONADIONE 10 MG/ML VIAL SQ ONE (16:00)
--- NOTE | 2017-03-11 16:27 | EKG ---
Date Performed: 03/10/2017 Time Performed: 23:43:05 PTAGE: 77 years EKG: Sinus rhythm WITH OCCASIONAL SUPRAVENTRICULAR PREMATURE COMPLEXES INTRAVENTRICULAR CONDUCTION DELAY POSSIBLE LATE RAL MYOCARDIAL INFARCTION Anterolateral T wave changes. When compared to previous tracing, patient chávez s developed the Anterolateral T wave changes and the premature atrial Contractions are new. Clinical corrolation is asdvised. ABNORMAL ECG PREVIOUS TRACING : 05/11/2016 16.35.34 DOCTOR: Andree Alston Interpretating Date/Time 03/11/2017 16:26:16
[2017-03-11] MEDS ORDERED: ACETAMINOPHEN/HYDROcodone 325 MG/5 MG TAB PO PRN (16:30)
--- NOTE | 2017-03-11 16:37 | HHI.PR ---
Subjective Remarks Pt reports that she has a lot of pain in the right arm any time she moves it She was unable to get surgery today because her INR was too high Pt is receiving her third unit of FFP currently. Objective Vitals Vital Signs Date Time Temp Pulse Resp B/P (MAP) Pulse Ox O2 Delivery O2 Flow Rate FiO2 03/11/17 14:15 97.2 63 16 135/69 95 03/11/17 14:09 97.2 63 16 135/69 (91) 95 03/11/17 11:45 97.7 78 19 113/59 95 03/11/17 11:41 97.7 78 19 113/59 (77) 95 03/11/17 09:45 98.3 64 18 117/61 95 03/11/17 09:30 97.0 61 19 122/63 96 03/11/17 07:24 97.0 61 19 122/63 (82) 96 03/11/17 04:57 96.7 60 17 112/54 93 03/11/17 03:58 57 03/11/17 02:27 96.0 59 17 113/50 95 03/11/17 02:10 96.2 62 17 113/55 95 03/11/17 02:10 96.2 62 17 113/55 (74) 95 03/11/17 01:49 62 126/63 (84) 03/11/17 01:48 57 03/11/17 01:02 03/10/17 23:36 72 18 134/67 (89) 97 Room Air 03/10/17 20:55 65 16 133/61 (85) 97 Room Air 03/10/17 19:11 97 Room Air 03/10/17 19:11 18 97 Room Air 03/10/17 18:52 59 18 97 2.00 03/10/17 18:50 97 Nasal Cannula 3.00 03/10/17 18:42 98.2 73 17 143/70 (94) 87 03/11/17 03/11/17 03/12/17 15:00 23:00 07:00 Intake Total 430 ml Balance 430 ml Intake Oral 100 ml FFP 315 ml Blood Product IV Normal Saline Flush 15 ml # Voids 2 # Bowel Movements 0 Result Diagram: 03/11/17 1210 03/10/172009 Other Results Laboratory Tests Test 03/10/17 20:10 03/11/17 04:11 03/11/17 12:10 White Blood Count 11.5 TH/MM3 Red Blood Count 4.89 MIL/MM3 Hemoglobin 13.2 GM/DL 11.1 GM/DL Hematocrit 40.1 % 32.6 % Mean Corpuscular Volume 82.0 FL Mean Corpuscular Hemoglobin 27.1 PG Mean Corpuscular Hemoglobin Concent 33.0 % Red Cell Distribution Width 14.2 % Platelet Count 209 TH/MM3 Mean Platelet Volume 8.0 FL Neutrophils (%) (Auto) 85.8 % Lymphocytes (%) (Auto) 9.0 % Monocytes (%) (Auto) 4.9 % Eosinophils (%) (Auto) 0.2 % Basophils (%) (Auto) 0.1 % Neutrophils # (Auto) 9.9 TH/MM3 Lymphocytes # (Auto) 1.0 TH/MM3 Monocytes # (Auto) 0.6 TH/MM3 Eosinophils # (Auto) 0.0 TH/MM3 Basophils # (Auto) 0.0 TH/MM3 CBC Comment DIFF FINAL Differential Comment Prothrombin Time 23.8 SEC 17.7 SEC 16.1 SEC Prothromb Time International Ratio 2.4 RATIO 1.7 RATIO 1.6 RATIO Activated Partial Thromboplast Time 36.8 SEC 34.8 SEC Blood Urea Nitrogen 23 MG/DL Creatinine 0.75 MG/DL Random Glucose 155 MG/DL Calcium Level 8.7 MG/DL Sodium Level 140 MEQ/L Potassium Level 4.0 MEQ/L Chloride Level 106 MEQ/L Carbon Dioxide Level 25.8 MEQ/L Anion Gap 8 MEQ/L Estimat Glomerular Filtration Rate 75 ML/MIN Imaging Last [address] 03/10/171856 Signed Impressions: Service Date/Time: Friday, March 10, 2017 19:47 - CONCLUSION: 1. No acute facial bone fracture. 2. Mild mucosal thickening within the left maxillary sinus and minimal mucosal thickening within the right maxillary sinus. 3. Right-sided nannette bullosa. Alvarez Briscoe MD Head CT 03/10/171856 Signed Impressions: Service Date/Time: Friday, March 10, 2017 19:47 - CONCLUSION: 1. No acute infarct, acute hemorrhage, mass effect or extra axial fluid collections. 2. Mild cerebral atrophy. 3. Mild periventricular and subcortical white matter small vessel ischemic changes bilaterally. Alvarez Briscoe MD Chest X-Ray 03/10/171856 Signed Impressions: Service Date/Time: Friday, March 10, 2017 19:41 - CONCLUSION: Mild cardiomegaly and minimal central pulmonary vascular congestion. Alvarez Briscoe MD Cervical Spine CT 03/10/171856 Signed Impressions: Service Date/Time: Friday, March 10, 2017 19:47 - CONCLUSION: 1. No acute fracture or prevertebral soft tissue swelling. 2. Moderate neural foraminal narrowing bilaterally at C5-6. 3. No bony spinal canal stenosis. 4. Cervical spondylosis at C5-6 and to a lesser extent at C4-5 and C3-4. Alvarez Briscoe MD Radius/Ulna X-Ray 03/10/17 0000 Signed Impressions: Service Date/Time: Friday, March 10, 2017 19:33 - CONCLUSION: 1. No acute fracture or desiccation of the radius or ulna. 2. Moderate osteoarthritis involving the first carpometacarpal joint. Alvarez Briscoe MD Humerus X-Ray 03/10/17 0000 Signed Impressions: Service Date/Time: Friday, March 10, 2017 22:15 - CONCLUSION: Persistent significant displacement of the spiral midshaft fracture of right humerus. Alvarez Briscoe MD Humerus X-Ray 03/10/17 0000 Signed Impressions: Service Date/Time: Friday, March 10, 2017 19:30 - CONCLUSION: Acute displaced spiral midshaft fracture of the right humerus. Alvarez Briscoe MD Objective Remarks General: NAD, AAOx3 Chest: CTA Cardiac: Regular Abd: +BS, soft ND/NT Ext: RUE bandaged in sling A/P Problem List: (1) Closed right humeral fracture ICD Codes: S42.301A - Unspecified fracture of shaft of humerus, right arm, initial encounter for closed fracture Status: Acute Plan: - Pt is a 77 y/o female with atrial fibrillation on chronic anticoagulation with Coumadin. - [place] [facility] [place] a trip and fall at home and landed on an outstretched right UE - Pt was found to have an acute displaced spiral midshaft fracture of the right humerus - Orthopedic Surgery was consulted - Pt was given Vitamin K 10mg SQ x one dose in the ED for INR reversal - She has also received 3 units of FFP - Last INR was 1.6 - She will get another INR repeated tonight and in AM - Her EKG at admission was similar to previous EKG findings in 05/2016, there are some nonspecific findings in the lateral leads but pt does not have any hx of CAD and has not had any cardiac symptoms. - Pt had a run of multiple PVCs on telemetry today. This was reviewed between Dr. Murray and Dr. Hi and it was felt that the pt was still stable for surgery - Cont. IVF - Pain control PRN, will add oral pain meds PRN - IS - Constipation precautions - Supportive care (2) Atrial fibrillation ICD Codes: I48.91 - Unspecified atrial fibrillation Status: Chronic Plan: - Continue Metoprolol 25mg po BID - Coumadin on hold - Pt has been given Vitamin K and FFP - Await INR to be at a level for surgery tomorrow (3) Hypertension ICD Codes: I10 - Essential (primary) hypertension Status: Chronic Plan: - Pt is on Norvasc 2.5mg po daily, Lisinopril 20mg po BID, and Metoprolol 25mg po BID as an outpt - Cont. Metoprolol - Cont. Lisinopril with parameters - Hold Norvasc as BP is low/normal - Pt is also on Lasix which will be held as well. - Monitor BP closely Assessment and Plan Patient examined. Assessment and plan formulated with Eliza Rico PA-C. I agree with the above. Problem Qualifiers (1) Closed right humeral fracture: Qualified Codes: S42.341A - Displaced spiral fracture of shaft of humerus, right arm, initial encounter for closed fracture (2) Atrial fibrillation: Qualified Codes: I48.0 - Paroxysmal atrial fibrillation Eliza Rico Mar 11, 2017 16:37 Toño Murray DO Mar 12, 2017 22:27
--- NOTE | 2017-03-11 17:03 | MB ---
cc: DVAID LOZANO DATE OF CONSULTATION 03/11/17 REASON FOR ADMISSION Right humerus fracture. CONSULTING PHYSICIAN Dr. Murray. HISTORY OF PRESENT ILLNESS Ms. Dickerson is a 77-year-old female who had a fall. She tripped over the plastic cover of her [place]rin[place] tree. She fell and landed on her right arm. She had immediate right arm pain. She presented to the emergency room where x-rays revealed a displaced mid shaft humerus fracture. She is currently awake on the orthopedic floor. Her only complaint is her right arm. Pain is worse with movement and is improved with rest. She denies dizziness, syncope or loss of consciousness. PAST MEDICAL HISTORY 1. Hypertension 2. Atrial fibrillation. PAST SURGICAL HISTORY 1. Cholecystectomy, 2. Appendectomy, 3. Bilateral knee replacement MEDICATIONS 1. Warfarin 2. Amlodipine 3. Lisinopril. 4. Potassium. 5. Lasix. 6. Coumadin. ALLERGIES NO KNOWN DRUG ALLERGIES. SOCIAL HISTORY The patient lives at home independently. She denies tobacco or drug use. REVIEW OF SYSTEMS The patient denies headache, visual changes, neck pain, chest pain, shortness of breath, abdominal pain, fever, chills, nausea, vomiting or recent weight loss. She complains of right arm pain. Pain is worse with movement. PHYSICAL EXAMINATION GENERAL: The patient is a pleasant 77-year female in no acute distress. She is awake. She is alert and oriented x3. VITAL SIGNS: Temperature 97.2, pulse 63, respirations 16, blood pressure 135/69, O2 sat 95% on room air. HEENT: Head - The patient is normocephalic. Pupils are equal. NECK: Soft, nontender. Trachea is midline. ABDOMEN: Soft, nontender, nondistended. EXTREMITIES: Examination of right arm reveals pain with any shoulder or elbow motion. She is tender to palpation around the humerus. Skin is intact. She has mild swelling and bruising present. She has intact sensation in radial, ulnar and median nerve distributions. She has good cap refill in all fingers. Examination of the left arm reveals no pain with shoulder, elbow or wrist motion. She has intact sensation in all fingers with a good cap refill in all fingers. Skin is intact. Radial pulses palpable. Examination of bilateral lower extremities reveals no pain with hip, knee or ankle motion. She has intact sensation of both feet. Skin was intact in both feet. IMAGING STUDIES X-ray of the right humerus was reviewed. X-ray reveal a displaced right mid shaft humerus fracture. IMPRESSION 1. Atrial fibrillation 2. Elevated INR secondary to Coumadin 3. Displaced right humerus fracture. PLAN Treatment options were discussed with the patient. At this point, I would recommend open reduction internal fixation of right humerus. Risks of surgery include bleeding, infection, injuries to arteries, nerves and blood vessels, nonunion, malunion, painful hardware, injury to radial nerve, weakness and numbness to hands as well as medical complications including blood clot, stroke, heart attack and . All questions were answered. I will plan on surgery today if she is medically cleared. The patient's INR is still elevated at 1.7 and will need to be decreased prior to surgery. All questions were answered. The surgical procedure was assisted by my physician cement tester assistant. My P.A. presence was necessary throughout this case for the manipulation and positioning of the surgical extremity. My P.A. was assisting me throughout the duration of this procedure. The skill set of a physician cement tester assistant was medically necessary to complete this procedure. During the surgical case the nursing surgical services director was working at the back table and the physician cement tester assistant was directly assisting me. MD TAINA Rosen/ /3:45 PM /4:44 PM
[2017-03-11 17:51] LABS: INTERNATIONAL NORMALIZED RATIO 1.5 RATIO; PROTHROMBIN TIME - PATIENT 14.7 SEC (9.8-11.6)
[2017-03-11] MEDS: ACETAMINOPHEN/HYDROcodone 325 MG/7.5 MG TAB PO PRN (20:37)
--- NOTE | 2017-03-11 22:50 | HHI.PR ---
Subjective Remarks called by nurse to see patient had 2 runs of ventricular tach and 3 couplets feeling ok no chest pain no SOB awaiting surgery in am ,also did have several episodes of svt is on metoprolol 25 bid labs were unremarkable with labs ordered for am. Objective Vitals GENERAL: SKIN: Warm and dry. HEAD: Atraumatic. Normocephalic. EYES: Pupils equal and round. No scleral icterus. No injection or drainage. ENT: No nasal bleeding or discharge. Mucous membranes pink and moist. NECK: Trachea midline. No JVD. CARDIOVASCULAR: Regular rate and rhythm. RESPIRATORY: No accessory muscle use. Clear to auscultation. Breath sounds equal bilaterally. GASTROINTESTINAL: Abdomen soft, non-tender, nondistended. Hepatic and splenic margins not palpable. MUSCULOSKELETAL: Extremities sling rt arm for fx humerus NEUROLOGICAL: Awake and alert. No obvious cranial nerve deficits. Motor grossly within normal limits. Five out of 5 muscle strength in the arms and legs. Normal speech. PSYCHIATRIC: Appropriate mood and affect; insight and judgment normal. Vital Signs Date Time Temp Pulse Resp B/P (MAP) Pulse Ox O2 Delivery O2 Flow Rate FiO2 03/11/17 22:15 98.9 67 18 113/63 93 03/11/17 21:54 99.0 70 16 100/53 94 03/11/17 20:00 99.1 81 17 118/65 (82) 95 03/11/17 16:21 98.5 78 18 117/59 (78) 92 03/11/17 16:10 98.5 78 18 117/59 92 03/11/17 14:15 97.2 63 16 135/69 95 03/11/17 14:09 97.2 63 16 135/69 (91) 95 03/11/17 11:45 97.7 78 19 113/59 95 03/11/17 11:41 97.7 78 19 113/59 (77) 95 03/11/17 09:45 98.3 64 18 117/61 95 03/11/17 09:30 97.0 61 19 122/63 96 03/11/17 07:24 97.0 61 19 122/63 (82) 96 03/11/17 04:57 96.7 60 17 112/54 93 03/11/17 03:58 57 03/11/17 02:27 96.0 59 17 113/50 95 03/11/17 02:10 96.2 62 17 113/55 95 03/11/17 02:10 96.2 62 17 113/55 (74) 95 03/11/17 01:49 62 126/63 (84) 03/11/17 01:48 57 03/11/17 01:02 03/10/17 23:36 72 18 134/67 (89) 97 Room Air 03/11/17 03/11/17 03/12/17 15:00 23:00 07:00 Intake Total 430 ml 266 ml Balance 430 ml 266 ml Intake Oral 100 ml FFP 315 ml 266 ml Blood Product IV Normal Saline Flush 15 ml # Voids 2 # Bowel Movements 0 Result Diagram: 03/11/17 1210 03/10/172009 Imaging Last [address] 03/10/171856 Signed Impressions: Service Date/Time: Friday, March 10, 2017 19:47 - CONCLUSION: 1. No acute facial bone fracture. 2. Mild mucosal thickening within the left maxillary sinus and minimal mucosal thickening within the right maxillary sinus. 3. Right-sided nannette bullosa. Alvarez Briscoe MD Head CT 03/10/171856 Signed Impressions: Service Date/Time: Friday, March 10, 2017 19:47 - CONCLUSION: 1. No acute infarct, acute hemorrhage, mass effect or extra axial fluid collections. 2. Mild cerebral atrophy. 3. Mild periventricular and subcortical white matter small vessel ischemic changes bilaterally. Alvarez Briscoe MD Chest X-Ray 03/10/171856 Signed Impressions: Service Date/Time: Friday, March 10, 2017 19:41 - CONCLUSION: Mild cardiomegaly and minimal central pulmonary vascular congestion. Alvarez Briscoe MD Cervical Spine CT 03/10/171856 Signed Impressions: Service Date/Time: Friday, March 10, 2017 19:47 - CONCLUSION: 1. No acute fracture or prevertebral soft tissue swelling. 2. Moderate neural foraminal narrowing bilaterally at C5-6. 3. No bony spinal canal stenosis. 4. Cervical spondylosis at C5-6 and to a lesser extent at C4-5 and C3-4. Alvarez Briscoe MD Radius/Ulna X-Ray 03/10/17 0000 Signed Impressions: Service Date/Time: Friday, March 10, 2017 19:33 - CONCLUSION: 1. No acute fracture or desiccation of the radius or ulna. 2. Moderate osteoarthritis involving the first carpometacarpal joint. Alvarez Briscoe MD Humerus X-Ray 03/10/17 0000 Signed Impressions: Service Date/Time: Friday, March 10, 2017 22:15 - CONCLUSION: Persistent significant displacement of the spiral midshaft fracture of right humerus. Alvarez Briscoe MD Humerus X-Ray 03/10/17 0000 Signed Impressions: Service Date/Time: Friday, March 10, 2017 19:30 - CONCLUSION: Acute displaced spiral midshaft fracture of the right humerus. Alvarez Briscoe MD Objective Remarks General: NAD, AAOx3 Chest: CTA Cardiac: Regular Abd: +BS, soft ND/NT Ext: RUE bandaged in sling A/P Problem List: (1) Closed right humeral fracture ICD Codes: S42.301A - Unspecified fracture of shaft of humerus, right arm, initial encounter for closed fracture Status: Acute Plan: - Pt is a 77 y/o female with atrial fibrillation on chronic anticoagulation with Coumadin. - [place] [facility] [place] a trip and fall at home and landed on an outstretched right UE - Pt was found to have an acute displaced spiral midshaft fracture of the right humerus - Orthopedic Surgery was consulted - Pt was given Vitamin K 10mg SQ x one dose in the ED for INR reversal - She has also received 3 units of FFP - Last INR was 1.6 - She will get another INR repeated tonight and in AM - Her EKG at admission was similar to previous EKG findings in 05/2016, there are some nonspecific findings in the lateral leads but pt does not have any hx of CAD and has not had any cardiac symptoms. - Pt had a run of multiple PVCs on telemetry today. This was reviewed between Dr. Murray and Dr. Hi and it was felt that the pt was still stable for surgery - Cont. IVF - Pain control PRN, will add oral pain meds PRN - IS - Constipation precautions - Supportive care (2) Atrial fibrillation ICD Codes: I48.91 - Unspecified atrial fibrillation Status: Chronic Plan: - Continue Metoprolol 25mg po BID - Coumadin on hold - Pt has been given Vitamin K and FFP - Await INR to be at a level for surgery tomorrow (3) Hypertension ICD Codes: I10 - Essential (primary) hypertension Status: Chronic Plan: - Pt is on Norvasc 2.5mg po daily, Lisinopril 20mg po BID, and Metoprolol 25mg po BID as an outpt - Cont. Metoprolol - Cont. Lisinopril with parameters - Hold Norvasc as BP is low/normal - Pt is also on Lasix which will be held as well. - Monitor BP closely (4) Ventricular tachycardia ICD Codes: I47.2 - Ventricular tachycardia Status: Resolved Plan: 2 runs vtach and 2 couplets tonight asymptomatic also svt today on metoprolol 25 bid lisinopril was on hold due to low BP will get cardiac evaluation Problem Qualifiers (1) Closed right humeral fracture: Qualified Codes: S42.341A - Displaced spiral fracture of shaft of humerus, right arm, initial encounter for closed fracture (2) Atrial fibrillation: Qualified Codes: I48.0 - Paroxysmal atrial fibrillation Angel Torres MD Mar 11, 2017 22:50
[2017-03-12] VITALS (27 sets, daily range): BP systolic 116–148; BP diastolic 57–97; PULSE 52–90; RESP 12–28; TEMP 98.2–99.1; O2SAT 14–97
[2017-03-12] MEDS: MORPHINE SULFATE 4 MG/ML INJ IV PUSH PRN ×3 (01:34→08:05)
[2017-03-12 03:33] LABS: INTERNATIONAL NORMALIZED RATIO 1.2 RATIO; PROTHROMBIN TIME - PATIENT 12.6 SEC (9.8-11.6)
[2017-03-12] MEDS: METOPROLOL TARTRATE 25 MG TAB PO SCH ×3 (06:38→20:53)
--- NOTE | 2017-03-12 07:02 | PD.ORT.PN ---
Subjective Subjective Remarks s/p right humerus fx patient got INR down to 1.2 but developed Vtach Objective Vitals Vital Signs Date Time Temp Pulse Resp B/P (MAP) Pulse Ox O2 Delivery O2 Flow Rate FiO2 03/12/17 00:35 98.4 73 18 116/64 95 03/12/17 00:15 73 03/11/17 22:15 98.9 67 18 113/63 93 03/11/17 21:54 99.0 70 16 100/53 94 03/11/17 20:30 81 03/11/17 20:00 99.1 81 17 118/65 (82) 95 03/11/17 16:21 98.5 78 18 117/59 (78) 92 03/11/17 16:10 98.5 78 18 117/59 92 03/11/17 14:15 97.2 63 16 135/69 95 03/11/17 14:09 97.2 63 16 135/69 (91) 95 03/11/17 11:45 97.7 78 19 113/59 95 03/11/17 11:41 97.7 78 19 113/59 (77) 95 03/11/17 09:45 98.3 64 18 117/61 95 03/11/17 09:30 97.0 61 19 122/63 96 03/11/17 07:24 97.0 61 19 122/63 (82) 96 I/O 03/11/17 03/11/17 03/11/17 03/12/17 03/12/17 03/12/17 07:00 15:00 23:00 07:00 15:00 23:00 Intake Total 965 ml 430 ml 506 ml 334 ml Balance 965 ml 430 ml 506 ml 334 ml Intake Oral 0 ml 100 ml 240 ml FFP 340 ml 315 ml 266 ml 334 ml Blood Product IV Normal Saline Flush 625 ml 15 ml # Voids 1 2 1 # Bowel Movements 0 0 0 Result Diagram: 03/11/17 1210 03/10/172009 Other Results Laboratory Tests Test 03/11/17 12:10 03/11/17 17:25 03/12/17 03:00 Prothromb Time International Ratio 1.6 RATIO 1.5 RATIO 1.2 RATIO Prothrombin Time 16.1 SEC (9.8-11.6) 14.7 SEC (9.8-11.6) 12.6 SEC (9.8-11.6) Imaging Last [address] 03/10/171856 Signed Impressions: Service Date/Time: Friday, March 10, 2017 19:47 - CONCLUSION: 1. No acute facial bone fracture. 2. Mild mucosal thickening within the left maxillary sinus and minimal mucosal thickening within the right maxillary sinus. 3. Right-sided nannette bullosa. Alvarez Briscoe MD Head CT 03/10/171856 Signed Impressions: Service Date/Time: Friday, March 10, 2017 19:47 - CONCLUSION: 1. No acute infarct, acute hemorrhage, mass effect or extra axial fluid collections. 2. Mild cerebral atrophy. 3. Mild periventricular and subcortical white matter small vessel ischemic changes bilaterally. Alvarez Briscoe MD Chest X-Ray 03/10/171856 Signed Impressions: Service Date/Time: Friday, March 10, 2017 19:41 - CONCLUSION: Mild cardiomegaly and minimal central pulmonary vascular congestion. Alvarez Briscoe MD Cervical Spine CT 03/10/171856 Signed Impressions: Service Date/Time: Friday, March 10, 2017 19:47 - CONCLUSION: 1. No acute fracture or prevertebral soft tissue swelling. 2. Moderate neural foraminal narrowing bilaterally at C5-6. 3. No bony spinal canal stenosis. 4. Cervical spondylosis at C5-6 and to a lesser extent at C4-5 and C3-4. Alvarez Briscoe MD Objective Remarks Bilateral lower extremity: Full range of motion neurovascular intact Left upper extremity full range of motion neurovascular intact Right upper extremity: Coaptation splint. Distally intact sensation of the radial ulnar median nerve distributions with good capillary refills. Is able fully extend her fingers and make a fist Assessment & Plan Assessment and Plan 1) Right mid shaft oblique fracture humerus -NWB -maintain splint -Halicat was called this AM due to HR of 190 consistently -patient likely to be transferred to Cardiac unit -not safe for surgery at this time -will await cardiac clearance before proceeding with surgery Leon Martinez/[employer] Mar 12, 2017 07:02
[2017-03-12 07:30] LABS: AUTOMATED NEUTROPHIL # 4.2 TH/MM3 (1.8-7.7); BASOPHIL % 0.4 % (0.0-2.0); EOSINOPHIL # 0.2 TH/MM3 (0-0.4); EOSINOPHIL % 2.8 % (0.0-4.0); HEMATOCRIT 32.8 % (35.0-46.0); HEMO FLAGS DIFF FINAL; LYMPH % 15.9 % (9.0-44.0); LYMPHOCYTE # 0.9 TH/MM3 (1.0-4.8); MEAN CELL VOLUME 81.3 FL (80.0-100.0); MEAN CORPUSCULAR HEMOGLOBIN 27.7 PG (27.0-34.0); MEAN CORPUSCULAR HGB CONC 34.1 % (32.0-36.0); MONO % 8.1 % (0.0-8.0); NEUT % 72.8 % (16.0-70.0); PLATELET COUNT 142 TH/MM3 (150-450); RED BLOOD COUNT 4.03 MIL/MM3 (4.00-5.30); WHITE BLOOD COUNT 5.8 TH/MM3 (4.0-11.0)
[2017-03-12 07:39] LABS: INTERNATIONAL NORMALIZED RATIO 1.2 RATIO
[2017-03-12 07:53] LABS: BICARBONATE 27.4 MEQ/L (21.0-32.0); MAGNESIUM 1.8 MG/DL (1.5-2.5); POTASSIUM 3.7 MEQ/L (3.5-5.1)
--- NOTE | 2017-03-12 08:08 | PD.CONS ---
HPI Consult Requested By Primary Care Physician Margret Lincoln MD History of Present Illness 77-year-old female with a past medical history of A. fib, HTN who presented after a trip and fall with humeral fracture and found to have episode of tachycardia while admitted. Last night the patient was having a sensation like her heart was racing in her upper anterior chest. She states that previous palpitations with atrial fibrillation have felt more posterior. She states the sensation lasted for a few minutes and then resolved. She does say that this morning she had about 30 seconds of lower anterior chest discomfort. She has not had any recent episodes of chest pain. She denies any shortness of breath. No electrolyte abnormalities. Her last stress test was 3 or 4 years ago. (Erick Garcia) Review of Systems Reviewed and unremarkable except as stated in the history of present illness (Erick Garcia) Past Family Social History Allergies: Coded Allergies: No Known Allergies (Verified Allergy, Unknown, 03/10/17) Past Medical History hypertension,atrial fib on chronic coumadin Past Surgical History gall bladder appendix,bilateral knee replacement pelvic surgery in past Reported Medications Reported Meds & Active Scripts Active Reported Warfarin 5 Mg Tab 5 Mg PO DAILY Amlodipine (Amlodipine Besylate) 2.5 Mg Tab 2.5 Mg PO DAILY Lisinopril 20 Mg Tab 20 Mg PO BID K-Tab (Potassium Chloride) 10 Meq Tab 10 Meq PO EVERY OTHER DAY Lasix (Furosemide) 40 Mg Tab 40 Mg PO DAILY Coumadin (Warfarin) 4 Mg Tab 4 Mg PO DAILY 5 Days Metoprolol Tartrate 25 Mg Tab 25 Mg PO BID Active Ordered Medications Current Medications Medications (Trade) Dose Ordered Sig/Alicia Route Start Time Stop Time Status Last Admin (Prinivil) 20 mg BID PO 03/11/17 09:00 03/11/17 07:35 (Lopressor) 25 mg BID PO 03/11/17 09:00 03/12/17 06:38 (Pill Splitter) 1 ea UNSCH PRN OTHER 03/10/17 23:45 (NS Flush) 2 ml UNSCH PRN IV FLUSH 03/10/17 23:30 (NS Flush) 2 ml BID IV FLUSH 03/11/17 09:00 03/11/17 20:34 (Zofran Inj) 4 mg Q6H PRN IVP 12/4/17 23:30 03/11/17 01:52 (Morphine Inj) 2 mg Q3H PRN IV PUSH 03/10/17 23:30 03/12/17 05:40 (Narcan Inj) 0.4 mg UNSCH PRN IV PUSH 03/10/17 23:30 (Danitza-Colace) 1 tab BID PO 03/11/17 09:00 03/11/17 20:35 (Milk Of Magnesia Liq) 30 ml Q12H PRN PO 03/10/17 23:30 (Senokot) 17.2 mg Q12H PRN PO 03/10/17 23:30 (Dulcolax Supp) 10 mg DAILY PRN RECTAL 03/10/17 23:30 (Lactulose Liq) 30 ml DAILY PRN PO 03/10/17 23:30 Lactated Ringer's 1,000 ml @ 30 mls/hr Q24H PRN IV 03/11/17 01:15 03/14/17 01:14 Sodium Chloride 500 ml @ 30 mls/hr [id number] PRN IV 03/11/17 01:15 03/14/17 01:14 (Betadine 5% Antisepsis Kit) 1 applic PLUMBING SERVICE TECHNICIAN PRN EACH NARE 03/11/17 01:15 03/14/17 01:14 (Chlorhexidine 2% Cloth) 3 pack PLUMBING SERVICE TECHNICIAN PRN TOPICAL 03/11/17 01:15 03/14/17 01:14 ([place] 5-325 Mg) 1 tab Q4H PRN PO 03/11/17 16:30 ([place] 7.5-325 Mg) 1 tab Q4H PRN PO 03/11/17 16:30 03/11/17 20:37 Social History NS,ND (Erick Garcia) Physical Exam Vital Signs Vital Signs Date Time Temp Pulse Resp B/P (MAP) Pulse Ox O2 Delivery O2 Flow Rate FiO2 03/12/17 07:46 92 Nasal Cannula 4.00 03/12/17 07:00 99.1 90 28 148/76 (100) 95 03/12/17 04:00 87 03/12/17 00:35 98.4 73 18 116/64 95 03/12/17 00:15 73 03/11/17 22:15 98.9 67 18 113/63 93 03/11/17 21:54 99.0 70 16 100/53 94 03/11/17 20:30 81 03/11/17 20:00 99.1 81 17 118/65 (82) 95 03/11/17 16:21 98.5 78 18 117/59 (78) 92 03/11/17 16:10 98.5 78 18 117/59 92 03/11/17 14:15 97.2 63 16 135/69 95 03/11/17 14:09 97.2 63 16 135/69 (91) 95 03/11/17 11:45 97.7 78 19 113/59 95 03/11/17 11:41 97.7 78 19 113/59 (77) 95 03/11/17 09:45 98.3 64 18 117/61 95 03/11/17 09:30 97.0 61 19 122/63 96 Physical Exam GENERAL: Well-developed well-nourished. In no acute distress. NECK: No carotid bruits. No JVD. CARDIOVASCULAR: Regular rate and rhythm. No murmur appreciated. RESPIRATORY: No accessory muscle use. Clear to auscultation. Breath sounds equal bilaterally. MUSCULOSKELETAL: No clubbing or cyanosis. No edema. NEUROLOGICAL: Awake and alert. Normal speech. Laboratory Laboratory Tests Test 03/11/17 12:10 03/11/17 17:25 03/12/17 03:00 03/12/17 07:14 Hemoglobin 11.1 11.2 Hematocrit 32.6 32.8 Prothrombin Time 16.1 14.7 12.6 12.0 Prothromb Time International Ratio 1.6 1.5 1.2 1.2 Activated Partial Thromboplast Time 34.8 White Blood Count 5.8 Red Blood Count 4.03 Mean Corpuscular Volume 81.3 Mean Corpuscular Hemoglobin 27.7 Mean Corpuscular Hemoglobin Concent 34.1 Red Cell Distribution Width 14.0 Platelet Count 142 Mean Platelet Volume 7.7 Neutrophils (%) (Auto) 72.8 Lymphocytes (%) (Auto) 15.9 Monocytes (%) (Auto) 8.1 Eosinophils (%) (Auto) 2.8 Basophils (%) (Auto) 0.4 Neutrophils # (Auto) 4.2 Lymphocytes # (Auto) 0.9 Monocytes # (Auto) 0.5 Eosinophils # (Auto) 0.2 Basophils # (Auto) 0.0 CBC Comment DIFF FINAL Differential Comment Blood Urea Nitrogen 12 Creatinine 0.45 Random Glucose 99 Calcium Level 8.8 Magnesium Level 1.8 Sodium Level 140 Potassium Level 3.7 Chloride Level 107 Carbon Dioxide Level 27.4 Anion Gap 6 Estimat Glomerular Filtration Rate 136 (Erick Garcia) Result Diagram: 03/12/17 0714 03/12/17 0714 Imaging Last Impressions Maxillofacial CT 03/10/171856 Signed Impressions: Service Date/Time: Friday, March 10, 2017 19:47 - CONCLUSION: 1. No acute facial bone fracture. 2. Mild mucosal thickening within the left maxillary sinus and minimal mucosal thickening within the right maxillary sinus. 3. Right-sided nannette bullosa. Alvarez Briscoe MD Head CT 03/10/171856 Signed Impressions: Service Date/Time: Friday, March 10, 2017 19:47 - CONCLUSION: 1. No acute infarct, acute hemorrhage, mass effect or extra axial fluid collections. 2. Mild cerebral atrophy. 3. Mild periventricular and subcortical white matter small vessel ischemic changes bilaterally. Alvarez Briscoe MD Chest X-Ray 03/10/171856 Signed Impressions: Service Date/Time: Friday, March 10, 2017 19:41 - CONCLUSION: Mild cardiomegaly and minimal central pulmonary vascular congestion. Alvarez Briscoe MD Cervical Spine CT 03/10/171856 Signed Impressions: Service Date/Time: Friday, March 10, 2017 19:47 - CONCLUSION: 1. No acute fracture or prevertebral soft tissue swelling. 2. Moderate neural foraminal narrowing bilaterally at C5-6. 3. No bony spinal canal stenosis. 4. Cervical spondylosis at C5-6 and to a lesser extent at C4-5 and C3-4. Alvarez Briscoe MD Radius/Ulna X-Ray 03/10/17 0000 Signed Impressions: Service Date/Time: Friday, March 10, 2017 19:33 - CONCLUSION: 1. No acute fracture or desiccation of the radius or ulna. 2. Moderate osteoarthritis involving the first carpometacarpal joint. Alvarez Briscoe MD Humerus X-Ray 03/10/17 0000 Signed Impressions: Service Date/Time: Friday, March 10, 2017 22:15 - CONCLUSION: Persistent significant displacement of the spiral midshaft fracture of right humerus. Alvarez Briscoe MD (Erick Garcia) Assessment and Plan Assessment and Plan 77-year-old female with a past medical history of A. fib, HTN who presented after a trip and fall with humeral fracture and found to have episode of tachycardia while admitted V. tach: Episode of 6 beat run and 5 beat run overnight. Continue metoprolol. Rule out ischemic etiology and defer surgery with catheterization today. Check echo., Consider increasing dose Atrial fibrillation/atrial flutter: Telemetry does show an episode of rapid atrial flutter overnight. Continue metoprolol, consider adjusting dose. Warfarin reversed for upcoming Ortho surgery, INR subtherapeutic. Right humeral fracture: Management per orthopedic surgery, requested cardiac clearance. (Erick Garcia) Assessment and Plan afib/flutter with RVR - + ST depression. titrate BB. DC amlodipine NSVT - two episodes today. + chest pain. trop neg. electrolytes ok. 2d echo. discussed options of SPECT vs LHC. to expedite surgery with definitive diagnosis , will plan LHC today. Discussed with Dr. Mendoza about need potentially for plavix if intervention absolutely necessary, he is agreeable with whatever needs to be done to safely clear her for surgery. NPO LHC this am. (Juan Luis Hi MD) Erick Garcia Mar 12, 2017 08:08 Juan Luis Hi MD Mar 12, 2017 08:29
[2017-03-12] MEDS ORDERED: MIDAZOLAM HCL 2 MG/2 ML VIAL ONE (08:32)
[2017-03-12] MEDS ORDERED: HEPARIN-NS/PF INJ 500 ML ONE (08:32)
[2017-03-12] MEDS ORDERED: HEPARIN SODIUM - IV 10,000 UNITS/10 ML VIAL ONE (08:33)
[2017-03-12] MEDS ORDERED: NITROGLYCERIN INJ 5 ML ONE (08:33)
[2017-03-12] MEDS ORDERED: POTASSIUM CHLORIDE 10 MEQ CONTROLLED RELEASE TAB PO SCH (09:00)
--- NOTE | 2017-03-12 09:37 | CATHPROC ---
[facility] HIS Report Study Information Study Number Admission Scheduled Start Study Start [id number] Mar 10 2017 11:41PM 03/12/2017 Mar 12 2017 8:30AM [place] [facility] Cardiac Catheterization Admit Source Facility Department Emergency department [facility] - Tool Room Gear Machine Operator Physician and Clinical Staff Initial Juan Luis Hutton Display Fabrication SupervisorErnestine SantanaRN Arianna Nuñez RN, Sarath RecordRafiq Waters,RT(R) Scrub Deena Watters,RT(R) Procedures Performed Procedure Location (Site) Vessel Name Angiogram LV LV Ventricle Coronary Angiograms LCA Left Coronary Coronary Angiograms RCA Right Coronary L Heart Cath Equipment Time Toolroom Clerk Description Size Mfg Part Number Used/Scraped TRANSDUCER, TRUWAVE [id number] 08:43 VAN BERNAL * Used W/STOCKCOCK *[id number] [id number] *[id number] [id number] *[id number] *[id number] 08:43 MEDLINE INDUSTRIES PACK, CCL CUSTOM * Used *[id number] 08:43 Dialogic PACER PEN, SKIN DUAL W/ RULER * Used *[id number] 08:43 DxContinuum WIRE, 3MMJ .035 180CM 180CM Used *[id number] 08:43 NAMIC MANIFOLD, 4 PORT * Used *[id number] 08:43 NYCOMED OMNIPAQUE, 350 MG, 150ML 150ML [id number] Used 09:30 NYCOMED OMNIPAQUE, 350 MG, 50ML 50ML [id number] Used [id number] 08:43 SANCHEZ MEDICAL BLANKET,WARM AIR CCL * Used *[id number] 08:43 TERUMStubmatic MEDICAL SHEATH, FR4 TERUMO (10CM) FR 4 Used *[id number] History: Current Medications Medication Dosage/Unit Route Frequency Last Date/Time Taken LISINOPRIL Coumadin LASIX LOPRESSOR History: Allergies Allergy Reaction No Known Allergies History: Risk Factors Family History of Hypertension Dyslipidemia Previous DC Previous Heart Failure Premature CAD Yes No No No No Prior Valve Prior PCI Prior CABG Surgery No No No Cerebrovascular Peripheral Artery Chronic Lung On Dialysis Diabetes Diabetes Therapy Disease Disease Disease No No No No Yes Diet History: Stress Tests Stress or Imaging Studies Performed No History: Arrhythmias Selection Items Atrial fibrillation History: Other Disease Selection Items HTN History: Other Current Smoker No Labs Hgb (g/dl) Hct (%) RBC (MIL/MM3) WBC (l/cumm) Platelets (thousands) 11.60-17.00 35.00-51.00 4.00-5.90 4.00-11.00 150.00-450.00 11.2 32.8 4 5.8 142 Glucose (mg/dl) BUN (mg/dl) Creatinine (mg/dl) BUN:Creatinine (1:x) 74.00-106.00 7.00-18.00 0.50-1.30 10.00-20.00 99 12 0.4 30 Na (meq/l) K (meq/l) Cl (meq/l) CO2 (mmol/L) Ca (mg/dl) 136.00-145.00 3.50-5.10 98.00-107.00 21.00-32.00 8.50-10.10 140 3.7 107 27.4 8.8 PT (sec) PTT (sec) INR (PTT:PT) 9.80-11.60 24.30-30.10 0.90-1.10 12 34.8 1.2 CPK-MB (ng/ML) 0.50-3.60 Not Drawn Medication Medication Total Dose (Bolus/Oral) Medication Total Dosage/Unit 1% XYLOCAINE 20 mL FENTANYL 25 mcg VERSED 1 mg Medications (Bolus/Oral) Medication Time Given Dosage/Unit Administered By Reason FENTANYL 03/12/2017 9:19:52 AM 25 mcg Sarath Nuñez RN 25 mcg FENTANYL given in lab by Sarath Nuñez RN in Left Forearm via Peripheral IV. VERSED 03/12/2017 9:20:05 AM 1 mg Sarath Nuñez RN 1 mg VERSED given in lab by Sarath Nuñez RN in Left Forearm via Peripheral IV. 1% XYLOCAINE 03/12/2017 9:20:45 AM 20 mL Juan Luis Hi 20 mL 1% XYLOCAINE given in lab by Juan Luis Hi in Right Groin via Subcutaneous. Medication (Drip) Medication Time Given Dosage/Unit Concentration/Unit Diluent (ml) Solution IV Solutions 03/12/2017 8:52:49 AM 0 mL (IV) 500 NaCl .9 IV Solutions given in lab by Sarath Nuñez RN in Left Forearm via Peripheral IV. Pump/Drip Flow = 20 m l/hr using NaCl .9. Initial Case Assessment Cardiovascular HR Rhythm NIBP Chest Pain 79 Sinus 142/64 0 Edema Present Skin color Skin None Normal Warm Dry Circulatory - Right Pulses Dorsalis Pedis Femoral 2 2 Scale (0,1,2,3,4,d) Circulatory - Left Pulses Dorsalis Pedis Femoral 2 2 Scale (0,1,2,3,4,d) Neurological State Oriented to time-place- Alert Moves all extremities person Respiration - General Respiration Rate SpO2 (%) O2 (lpm) (B/min) 14 94 2 Final Case Assessment Cardiovascular HR Rhythm NIBP Chest Pain 74 Sinus 120/62 0 Edema Present Skin color Skin None Normal Warm Dry Circulatory - Right Pulses Dorsalis Pedis Femoral 2 2 Scale (0,1,2,3,4,d) Circulatory - Left Pulses Dorsalis Pedis Femoral 2 2 Scale (0,1,2,3,4,d) Neurological State Oriented to time-place- Alert Moves all extremities person Respiration - General Respiration Rate SpO2 (%) O2 (lpm) (B/min) 16 95 2 Chronological Log Time Study Chronological Log 8:52:31 Patient arrived via Bed. 8:52:32 Patient Name, D.O.B, / Armband Verified By R.N. 8:52:32 Consent signed by the physician and the patient and verified by the Tool Room Gear Machine Operator staff. 8:52:33 Pre-op and post- op instructions given; patient acknowledges understanding of instructions. 8:52:34 Verbal Stimulation=2 Physical Stimulation=2 Airway=2 Respiration=2 TOTAL=8. (0=absent, 1=li mited, 2=present) 8:52:35 Presedation assessment performed by Tool Room Gear Machine Operator RN. 8:52:42 Patient has been NPO for More than 6Hrs. 8:52:43 Skin Breakdown- none per patient. 8:52:44 Patient Warmer Placed on the Table. 8:52:47 Halima Prominences Protected 8:52:48 A # 18 IV was noted in the Forearm (left). Grade = 0 8:52:49 IV Solutions given in lab by Sarath Nuñez RN in Left Forearm via Peripheral IV. Pump/Drip F low = 20 ml/hr using NaCl .9. 8:52:50 History and physical on the chart or being dictated. Vitals capture started with the following parameters, Patient=Adult, Interval=5 min, Initial Pr jzusrr=268 mmHg, 9:02:41 Deflation Rate=5 mmHg, Cuff placed on Left Arm Assessment: Initial Case, HR=79 BPM, Rhythm=Sinus, NVNS=068/64 mmhg, Chest Pain=0, Edema=None, Color=Normal, Skin = Warm, Dry Right Pulses: Ortega Ped=2, Femoral=2 9:02:43 Left Pulses: Ortega Ped=2, Femoral=2 Neurological: State=Alert, Ox3, CHAPMAN Respiration: Resp=14 B/min, SpO2=94 %, O2=2 lpm 9:03:29 HR=92 bpm, OTBW=611/64 mmhg, SpO2=88.0 %, Resp=29 B/min, Pain=0, Gladis=10, Bill=2 9:04:06 Reference ECG taken 9:07:49 Bilateral groins prepped with 2% chlorhexidine, and draped after a 3 minute waiting time. 9:08:26 HR=66 bpm, PLUZ=467/70 mmhg, SpO2=92.0 %, Resp=8 B/min, Pain=0, Gladis=10, Bill=2 9:09:42 MD paged 9:11:27 Pressure channel 1 zeroed. 9:12:28 MD arrived. 9:13:27 HR=70 bpm, AMUE=237/69 mmhg, SpO2=93.0 %, Resp=16 B/min, Pain=0, Gladis=10, Bill=2 Time Out. Correct patient, correct procedure, correct physician, power injector not loaded with contrast with surgical 9:18:23 team present. Time Out Concurred by MD and individual staff in procedure. 9:18:24 HR=64 bpm, WKVO=747/54 mmhg, SpO2=90.0 %, Resp=10 B/min, Pain=0, Gladis=10, Bill=2 9:19:52 25 mcg FENTANYL given in lab by Sarath Nuñez RN in Left Forearm via Peripheral IV. 9:20:05 1 mg VERSED given in lab by Sarath Nuñez RN in Left Forearm via Peripheral IV. 9:20:43 Case Start 9:20:45 20 mL 1% XYLOCAINE given in lab by Juan Luis Hi in Right Groin via Subcutaneous. 9:21:01 Access site was Right Femoral Artery. 9:21:08 A SHEATH, FR4 TERUMO (10CM) FR 4 was advanced into the Fem Art (right) using the Percutaneou s technique. A JR 4.0 INFINITI CATHETER FR 4 was advanced over a wire. OMNIPAQUE, 350 MG, 150ML 150ML was use d for 9:21:57 injections. Recorded Pressure: Ao, HR=67, Condition=Condition 1 9:22:21 (Aorta) Ao 117/50/78 9:23:21 HR=68 bpm, DTMZ=582/65 mmhg, SpO2=92.0 %, Resp=13 B/min, Pain=0, Gladis=10, Bill=2 9:23:42 The RCA was injected and visualized at various angles. OMNIPAQUE, 350 MG, 150ML 150ML used. After removing the current catheter a JL 4.0 INFINITI CATHETER FR 4 was advanced over a WIRE, 3M MJ .035 180CM 9:24:07 180CM. 9:25:34 The LCA was injected and visualized at various angles. OMNIPAQUE, 350 MG, 150ML 150ML used. After removing the current catheter a PIGTAIL ANG. INFINITI CATHETER FR 4 was advanced over a WI RE, 3MMJ .035 9:26:18 180CM 180CM. Recorded Pressure: LV, HR=76, Condition=Condition 1 9:27:36 (Left Ventricle) LV 122/5/14 9:28:24 HR=71 bpm, DFHB=682/62 mmhg, SpO2=93.0 %, Resp=12 B/min, Pain=0, Gladis=10, Bill=2 9:29:27 The LV was injected at 12 cc/sec for a total of 24. OMNIPAQUE, 350 MG, 50ML 50ML used. Recorded Pressure: LV, Ao, HR=86, Condition=Condition 1 9:29:45 (Left Ventricle) LV 113/14/13, (Aorta) Ao 109/47/76 9:30:09 Catheter was removed 9:30:15 Case End Assessment: Final Case, HR=74 BPM, Rhythm=Sinus, LPTG=410/62 mmhg, Chest Pain=0, Edema=None, Color=Normal, Skin = Warm, Dry Right Pulses: Ortega Ped=2, Femoral=2 9:31:29 Left Pulses: Ortega Ped=2, Femoral=2 Neurological: State=Alert, Ox3, CHAPMAN Respiration: Resp=16 B/min, SpO2=95 %, O2=2 lpm 9:32:21 Sterile dressing applied to site 9:32:24 No case complications noted. 9:32:27 Cine recording checked. 9:33:23 HR=68 bpm, YYLC=524/69 mmhg, SpO2=93.0 %, Resp=19 B/min, Pain=0, Gladis=10, Bill=2 9:33:36 Bedside Report will be given. 9:33:40 A Left Heart Cath was performed. 9:36:09 Vitals capture stopped. End Study - Contrast Media Used In Study Contrast Total Opened (mL) Total Used (mL) Total Wasted (mL) Omnipaque 200 50 150 End Study - Maximum Contrast Load Max Contrast Load (mL) 1221.0 End Study - Radiation Exposure Fluoro Time (minutes) 2.1 End Study - Patient Disposition Complications Transferred To Interventional Outcome No Telemetry Bed No attempt made
--- NOTE | 2017-03-12 09:43 | EKG ---
Date Performed: 03/12/2017 Time Performed: 07:07:46 PTAGE: 77 years EKG: Sinus rhythm WITH FIRST DEGREE AV BLOCK WITH OCCASIONAL SUPRAVENTRICULAR PREMATURE COMPLEXES LOW QRS VOLTAGE IN P RECORDIAL LEADS ABNORMAL ECG PREVIOUS TRACING : 03/10/2017 23.43 Compared to prior tracing no significant change DOCTOR: Caitlin Pagan Interpretating Date/Time 03/12/2017 09:41:12
[2017-03-12] MEDS ORDERED: ATROPINE SULFATE 1 MG/ML VIAL IV PUSH PRN (09:45)
[2017-03-12] MEDS ORDERED: METOCLOPRAMIDE HCL 10 MG/2 ML VIAL IV PUSH PRN (09:45)
[2017-03-12] MEDS ORDERED: LIDOCAINE HCL 1% 50 ML VIAL INFIL PRN (09:45)
[2017-03-12] MEDS ORDERED: SODIUM CHLOR 0.9% 250 ML INJ 250 ML IV PRN (09:45)
[2017-03-12] MEDS: DOCUSATE SODIUM 50 MG/SENNA 8.6 MG TAB PO SCH ×3 (09:59→21:00)
[2017-03-12] MEDS: LISINOPRIL 20 MG TAB PO SCH (10:00)
[2017-03-12] MEDS ORDERED: GENTAMICIN SULFATE 80 MG/2 ML VIAL ONE (10:05)
[2017-03-12] MEDS ORDERED: BUPIVACAINE/EPINEPHRINE 0.25% PF 10 ML VIAL ONE (10:05)
[2017-03-12] MEDS ORDERED: VANCOMYCIN HCL 1000 MG VIAL ONE (10:05)
[2017-03-12] MEDS: SODIUM CHLORIDE 0.9% FLUSH 10 ML FLUSH IV FLUSH SCH ×2 (10:32→20:53)
[2017-03-12] MEDS ORDERED: BACITRACIN OINT 0.9 GM PKT TOP ONE (11:00)
[2017-03-12] MEDS: ACETAMINOPHEN/HYDROcodone 325 MG/7.5 MG TAB PO PRN ×3 (11:15→21:00)
[2017-03-12] MEDS ORDERED: IOHEXOL 350 MG/ML 50 ML BTL (for Cath Lab) OTHER ONE (13:39)
--- NOTE | 2017-03-12 14:12 | HHI.PR ---
Subjective Remarks Pt had 2 episodes of NSVT with palpitations. Pt is currently asymptomatic and denies chest pain, palpitations, SOB, n/v,or diaphoresis. Objective Vitals Vital Signs Date Time Temp Pulse Resp B/P (MAP) Pulse Ox O2 Delivery O2 Flow Rate FiO2 03/12/17 11:54 59 19 128/58 (81) 96 03/12/17 11:24 56 19 125/59 (81) 96 03/12/17 10:54 56 23 131/61 (84) 03/12/17 10:24 58 20 132/63 (86) 96 03/12/17 10:09 62 14 138/67 (90) 96 03/12/17 10:00 62 03/12/17 09:54 70 18 148/76 (100) 95 03/12/17 09:51 70 18 146/75 (98) 95 03/12/17 09:39 70 20 146/76 (99) 95 03/12/17 08:00 90 03/12/17 08:00 138/76 (96) 03/12/17 08:00 90 03/12/17 07:46 92 Nasal Cannula 4.00 03/12/17 07:00 99.1 90 28 148/76 (100) 95 03/12/17 04:00 87 03/12/17 00:35 98.4 73 18 116/64 95 03/12/17 00:15 73 03/11/17 22:15 98.9 67 18 113/63 93 03/11/17 21:54 99.0 70 16 100/53 94 03/11/17 20:30 81 03/11/17 20:00 99.1 81 17 118/65 (82) 95 03/11/17 16:21 98.5 78 18 117/59 (78) 92 03/11/17 16:10 98.5 78 18 117/59 92 03/11/17 14:15 97.2 63 16 135/69 95 03/11/17 14:09 97.2 63 16 135/69 (91) 95 03/12/17 03/12/17 03/13/17 15:00 23:00 07:00 Intake Total 25 ml Balance 25 ml IV Total 25 ml Result Diagram: 03/12/1771303/12/17713 Imaging Last Impressions Maxillofacial CT 03/10/171856 Signed Impressions: Service Date/Time: Friday, March 10, 2017 19:47 - CONCLUSION: 1. No acute facial bone fracture. 2. Mild mucosal thickening within the left maxillary sinus and minimal mucosal thickening within the right maxillary sinus. 3. Right-sided nannette bullosa. Alvarez Briscoe MD Head CT 03/10/171856 Signed Impressions: Service Date/Time: Friday, March 10, 2017 19:47 - CONCLUSION: 1. No acute infarct, acute hemorrhage, mass effect or extra axial fluid collections. 2. Mild cerebral atrophy. 3. Mild periventricular and subcortical white matter small vessel ischemic changes bilaterally. Alvarez Briscoe MD Chest X-Ray 03/10/171856 Signed Impressions: Service Date/Time: Friday, March 10, 2017 19:41 - CONCLUSION: Mild cardiomegaly and minimal central pulmonary vascular congestion. Alvarez Briscoe MD Cervical Spine CT 03/10/171856 Signed Impressions: Service Date/Time: Friday, March 10, 2017 19:47 - CONCLUSION: 1. No acute fracture or prevertebral soft tissue swelling. 2. Moderate neural foraminal narrowing bilaterally at C5-6. 3. No bony spinal canal stenosis. 4. Cervical spondylosis at C5-6 and to a lesser extent at C4-5 and C3-4. Alvarez Briscoe MD Radius/Ulna X-Ray 03/10/17 0000 Signed Impressions: Service Date/Time: Friday, March 10, 2017 19:33 - CONCLUSION: 1. No acute fracture or desiccation of the radius or ulna. 2. Moderate osteoarthritis involving the first carpometacarpal joint. Alvarez Briscoe MD Humerus X-Ray 03/10/17 0000 Signed Impressions: Service Date/Time: Friday, March 10, 2017 22:15 - CONCLUSION: Persistent significant displacement of the spiral midshaft fracture of right humerus. Alvarez Briscoe MD Objective Remarks General: NAD, AAOx3 Chest: CTA Cardiac: Regular Abd: +BS, soft ND/NT Ext: RUE bandaged in sling A/P Problem List: (1) NSVT (nonsustained ventricular tachycardia) ICD Codes: I47.2 - Ventricular tachycardia Status: Acute Plan: - comgmt with Cardiology - pt had 2 episodes of symptomatic NSVT - Pt underwent C (03/12/17) with Dr. Hi - NO hemodynamically significant stenosis seen - metoprolol increased to 50mg BID - Pt cleared by Cardiology for Orthopedic repair (2) Closed right humeral fracture ICD Codes: S42.301A - Unspecified fracture of shaft of humerus, right arm, initial encounter for closed fracture Status: Acute Plan: - Comgmt with Orthopedics, Dr. Mendoza - Pt is a 77 y/o female with atrial fibrillation on chronic anticoagulation with Coumadin. - She presented to the ED at [facility] on [place] after a trip and fall at home and landed on an outstretched right UE - Pt was found to have an acute displaced spiral midshaft fracture of the right humerus - - Pt's INR was reversed with 10mg Vit K & 3 units FFP - INR 1.3 (03/12) - hydrocodone/morphine prn - IS - Constipation precautions - Supportive care (3) Atrial fibrillation ICD Codes: I48.91 - Unspecified atrial fibrillation Status: Chronic Plan: - metoprolol - Coumadin on hold - INR reversed for surgery (4) Hypertension ICD Codes: I10 - Essential (primary) hypertension Status: Chronic Plan: - Pt is on Norvasc 2.5mg po daily, Lisinopril 20mg po BID, and Metoprolol 25mg po BID as an outpt - Cont. Metoprolol - Cont. Lisinopril with parameters - Hold Norvasc as BP is low/normal - Pt is also on Lasix which will be held as well. - Monitor BP closely Problem Qualifiers (1) Closed right humeral fracture: Qualified Codes: S42.341A - Displaced spiral fracture of shaft of humerus, right arm, initial encounter for closed fracture (2) Atrial fibrillation: Qualified Codes: I48.0 - Paroxysmal atrial fibrillation Toño Murray DO Mar 12, 2017 14:12
[2017-03-13] VITALS (12 sets, daily range): BP systolic 110–151; BP diastolic 56–67; PULSE 51–86; RESP 12–22; TEMP 97.6–98.6; O2SAT 91–98
[2017-03-13] MEDS: ACETAMINOPHEN/HYDROcodone 325 MG/7.5 MG TAB PO PRN ×3 (04:06→23:19)
[2017-03-13 05:58] LABS: INTERNATIONAL NORMALIZED RATIO 1.1 RATIO
[2017-03-13] MEDS ORDERED: ACETAMINOPHEN 1000 MG/100 ML 100 ML IV ONE (06:59)
--- NOTE | 2017-03-13 07:14 | PD.ORT.PN ---
Subjective Subjective Remarks s/p right humerus fx patient udnerwent cardia cath yesterday. has been cleared for surgery Objective Vitals Vital Signs Date Time Temp Pulse Resp B/P (MAP) Pulse Ox O2 Delivery O2 Flow Rate FiO2 03/13/17 06:00 55 03/13/17 04:00 55 03/13/17 04:00 98.6 55 16 151/67 (95) 97 03/13/17 02:00 54 03/13/17 00:00 98.2 51 12 110/56 (74) 96 03/13/17 00:00 51 03/12/17 22:00 52 03/12/17 20:00 97 Nasal Cannula 3.00 03/12/17 20:00 98.9 57 12 116/57 (76) 97 03/12/17 20:00 53 03/12/17 18:00 65 03/12/17 16:24 61 16 129/61 (83) 03/12/17 16:00 98.3 63 18 129/97 (108) 96 03/12/17 16:00 63 03/12/17 15:24 60 20 128/88 (101) 96 03/12/17 15:00 68 03/12/17 14:24 56 20 125/62 (83) 96 03/12/17 14:00 57 03/12/17 13:24 58 20 128/59 (82) 96 03/12/17 12:54 58 18 125/58 (80) 96 03/12/17 12:00 60 03/12/17 12:00 98.2 56 125/58 (80) 14 03/12/17 11:54 59 19 128/58 (81) 96 03/12/17 11:24 56 19 125/59 (81) 96 03/12/17 10:54 56 23 131/61 (84) 03/12/17 10:24 58 20 132/63 (86) 96 03/12/17 10:09 62 14 138/67 (90) 96 03/12/17 10:00 62 03/12/17 09:54 70 18 148/76 (100) 95 03/12/17 09:51 70 18 146/75 (98) 95 03/12/17 09:39 70 20 146/76 (99) 95 03/12/17 08:00 90 03/12/17 08:00 138/76 (96) 03/12/17 08:00 90 03/12/17 07:46 92 Nasal Cannula 4.00 I/O 03/12/17 03/12/17 03/12/17 03/13/17 03/13/17 03/13/17 07:00 15:00 23:00 07:00 15:00 23:00 Intake Total 334 ml 25 ml 960 ml 0 ml Output Total 700 ml 200 ml Balance 334 ml 25 ml 260 ml -200 ml Intake Oral 0 ml 460 ml 0 ml IV Total 25 ml 500 ml FFP 334 ml Output Urine Total 700 ml 200 ml # Voids 1 2 # Bowel Movements 0 0 0 Result Diagram: 03/12/1771303/12/17713 Other Results Laboratory Tests Test 03/12/17 07:14 03/13/17 05:31 Prothromb Time International Ratio 1.2 RATIO 1.1 RATIO Prothrombin Time 12.0 SEC (9.8-11.6) 11.0 SEC (9.8-11.6) Imaging Last [address] 03/10/171856 Signed Impressions: Service Date/Time: Friday, March 10, 2017 19:47 - CONCLUSION: 1. No acute facial bone fracture. 2. Mild mucosal thickening within the left maxillary sinus and minimal mucosal thickening within the right maxillary sinus. 3. Right-sided nannette bullosa. Alvarez Briscoe MD Head CT 03/10/171856 Signed Impressions: Service Date/Time: Friday, March 10, 2017 19:47 - CONCLUSION: 1. No acute infarct, acute hemorrhage, mass effect or extra axial fluid collections. 2. Mild cerebral atrophy. 3. Mild periventricular and subcortical white matter small vessel ischemic changes bilaterally. Alvarez Briscoe MD Chest X-Ray 03/10/171856 Signed Impressions: Service Date/Time: Friday, March 10, 2017 19:41 - CONCLUSION: Mild cardiomegaly and minimal central pulmonary vascular congestion. Alvarez Briscoe MD Cervical Spine CT 03/10/171856 Signed Impressions: Service Date/Time: Friday, March 10, 2017 19:47 - CONCLUSION: 1. No acute fracture or prevertebral soft tissue swelling. 2. Moderate neural foraminal narrowing bilaterally at C5-6. 3. No bony spinal canal stenosis. 4. Cervical spondylosis at C5-6 and to a lesser extent at C4-5 and C3-4. Alvarez Briscoe MD Objective Remarks Bilateral lower extremity: Full range of motion neurovascular intact Left upper extremity full range of motion neurovascular intact Right upper extremity: Coaptation splint. Distally intact sensation of the radial ulnar median nerve distributions with good capillary refills. Is able fully extend her fingers and make a fist Assessment & Plan Assessment and Plan 1) Right mid shaft oblique fracture humerus -NWB -maintain splint -cleared for surgery -INR 1.1 -surgery this AM Leon Martinez/Log Cut Off Sawyer PA Mar 13, 2017 07:14
[2017-03-13] MEDS ORDERED: GENTAMICIN SULFATE 80 MG/2 ML VIAL ONE (08:06)
[2017-03-13] MEDS ORDERED: VANCOMYCIN HCL 1000 MG VIAL ONE (08:41)
[2017-03-13] MEDS ORDERED: ceFAZolin INJ 1,000 MG VIAL ONE (08:41)
[2017-03-13] MEDS: DOCUSATE SODIUM 50 MG/SENNA 8.6 MG TAB PO SCH ×2 (09:00→21:27)
[2017-03-13] MEDS: METOPROLOL TARTRATE 25 MG TAB PO SCH ×2 (09:00→21:27)
[2017-03-13] MEDS: LISINOPRIL 20 MG TAB PO SCH (09:00)
[2017-03-13] MEDS: SODIUM CHLORIDE 0.9% FLUSH 10 ML FLUSH IV FLUSH SCH ×2 (09:00→21:32)
--- NOTE | 2017-03-13 09:56 | PD.OP ---
cc: Rowdy Snyder MD Operative Report Date of Surgery: Mar 13, 2017 Preoperative Diagnosis: Displaced right humerus shaft fracture Postoperative Diagnosis: Procedure: Open reduction internal fixation right humerus Surgeon: Rowdy Snyder Wool Grower(s): RONNI Coleman PA-C The surgical procedure was assisted by my physician campus administrative assistant. My P.A. presence was necessary throughout this case for the manipulation and positioning of the surgical extremity. My P.A. was assisting me throughout the duration of this procedure. The skill set of a physician campus administrative assistant was medically necessary to complete this procedure. During the surgical case the surgical nurse was working at the back table and the physician campus administrative assistant was directly assisting me. Operation and Findings: Patient was seen and evaluated preoperatively. Ernestine had a displaced right humerus shaft fracture.. Treatment options were discussed regarding humerus fracture including surgical and nonsurgical treatments. After detailed discussion of risk and benefits of procedure patient wishes to proceed with surgery. Risks of surgery include bleeding, infection, nonunion, malunion, painful hardware, loss of motion of shoulder and elbow, weakness and numbness of arm, as well as medical competitions including blood clots stroke and . Patient was cleared medically prior to surgery. Patient was brought to operating room and placed on the OR table. GETA was administered by anesthesiologist. Patient was positioned in lateral decubitus position. Extremities were well-padded. Axillary roll was placed. Operative arm and shoulder were prepped with alcohol followed by Hibiclens and draped usual sterile fashion. Timeout procedure was performed. IV antibiotics were given prior to incision. A standard posterior approach was utilized. Subcutaneous tissues was dissected with Bovie. The triceps muscle was split midline. The radial nerve was identified and protected throughout the procedure. The nerve was intact. The fracture was identified. Soft tissue was removed from the fracture site. Fracture site was cleaned with curettes. At this point the fracture was reduced using fracture tenaculums. Multiplanar fluoroscopy confirmed excellent of fracture. 2.7 cortical lag screws were used to compress fracture. A Synthes 3.5 plate was contoured to fit the humerus. Plate was provisionally held the bone with K wires. 3.5 cortical screws were placed on each side of the fracture. The screws were placed to add compression to fracture. Multiple screws were placed in each side of the fracture. All screws were predrilled and premeasured for appropriate length. Final fluoroscopy revealed excellent alignment of fracture with well-placed hardware. Incision was thoroughly irrigated. Fascia was closed with #1 Vicryl, subcutaneous tissues closed with 3 -0 Vicryl, and skin was closed with venecia. Sterile dressings were applied. Needle and sponge counts were correct. Patient was placed into a sling, and then transferred to recovery room in stable condition Rowdy Snyder MD Mar 13, 2017 09:56
[2017-03-13] MEDS ORDERED: diphenhydrAMINE HCL 25 MG CAP PO PRN (10:00)
[2017-03-13] MEDS ORDERED: *MEPERIDINE 25 MG INJ VIAL PERIprocedural Use ONLY ONE (10:32)
[2017-03-13] MEDS ORDERED: *morphine SULFATE 8 MG/ML PERIprocedure ONLY ONE ×2 (10:46→10:56)
--- NOTE | 2017-03-13 11:07 | RADRPT ---
EXAM DATE/TIME: 03/13/2017 09:41 [facility] COMPARISON: HUMERUS RIGHT (MIN 2VWS), March 10, 2017, 22:15. INDICATIONS : ORIF right humerus fracture. MEDICAL HISTORY : Unobtainable. SURGICAL HISTORY : Unobtainable. ENCOUNTER: Subsequent ACUITY: 3 days PAIN SCORE: Non-responsive. LOCATION: Right humerus. FINDINGS: Interval plate and screw fixation of the right humeral mid shaft fracture. There is now anatomical al ignment. Hardware appears well-positioned and intact. No new significant acute bony fractures are not ed. CONCLUSION: 1. Status post right humeral ORIF in anatomic alignment. Nicola Herzog MD on March 13, 2017 at 11:04 Board Certified Radiologist. This report was verified electronically.
[2017-03-13] MEDS ORDERED: *HYDROmorphone PF 1 MG VIAL PERIprocedural Use ONLY ONE (11:08)
[2017-03-13] MEDS ORDERED: DO NOT ADM ANY ANTICOAGULANT DRUGS PRN (11:15)
[2017-03-13] MEDS ORDERED: ERGOCALCIFEROL (VIT D2) 50,000 UNIT CAP PO SCH (12:00)
[2017-03-13] MEDS: CALCIUM/VITAMIN D 250 MG/125 U TAB PO SCH ×2 (13:14→17:38)
--- NOTE | 2017-03-13 16:37 | ECHRPT ---
Indication: heart failure CONCLUSIONS The left ventricular systolic function is low normal with an estimated ejection fraction in the rang e of 50- 55%. Normal left ventricular size. Laajg-cm-cmza mitral valve regurgitation. There is mild tricuspid valve regurgitation. The estimated pulmonary arterial pressure is 43.6 mmHg. BP: / HR: Rhythm: MEASUREMENTS (Male / Female) Normal Values Technical Quality:Very technically difficult study 2D ECHO LV Diastolic Diameter PLAX 4.8 cm 4.2 - 5.9 / 3.9 - 5.3 cm LV Systolic Diameter PLAX 3.7 cm IVS Diastolic Thickness 1.2 cm 0.6 - 1.0 / 0.6 - 0.9 cm LVPW Diastolic Thickness 1.2 cm 0.6 - 1.0 / 0.6 - 0.9 cm LV Relative Wall Thickness 0.5 RV Internal Dim ED PLAX 3.3 cm M-MODE Aortic Root Diameter MM 3.3 cm LA Systolic Diameter MM 3.5 cm LA Ao Ratio MM 1.1 AV Cusp Separation MM 2.2 cm DOPPLER Mitral E Point Velocity 71.1 cm/s Mitral A Point Velocity 81.4 cm/s Mitral E to A Ratio 0.9 LV E' Lateral Velocity 8.2 cm/s Mitral E to LV E' Lateral Ratio 8.7 LV E' Septal Velocity 7.1 cm/s Mitral E to LV E' Septal Ratio 10.0 TR Peak Velocity 290.0 cm/s TR Peak Gradient 33.6 mmHg Right Atrial Pressure 10.0 mmHg Pulmonary Artery Systolic Pressu 43.6 mmHg Right Ventricular Systolic Press 43.6 mmHg FINDINGS LEFT VENTRICLE The left ventricular systolic function is low normal with an estimated ejection fraction in the rang e of 50- 55%. Normal left ventricular size. RIGHT VENTRICLE Normal right ventricular size and systolic function. LEFT ATRIUM The left atrial size is normal. RIGHT ATRIUM The right atrial size is normal. ATRIAL SEPTUM Normal atrial septal thickness without atrial level shunting by limited color doppler interrogation. AORTA The aortic root and proximal ascending aorta are normal in size on limited imaging. MITRAL VALVE Heqof-ed-yhos mitral valve regurgitation. Structurally normal mitral valve. AORTIC VALVE Trileaflet aortic valve. No aortic valve stenosis or regurgitation. TRICUSPID VALVE There is mild tricuspid valve regurgitation. Structurally normal tricuspid valve. The estimated pulmonary arterial pressure is 43.6 mmHg. PULMONARY VALVE No pulmonary valve regurgitation or stenosis. VESSELS The inferior vena cava is normal in size. PERICARDIUM No pericardial effusion. Juan Luis Minor MD, FACC (Electronically Signed) Final Date:13 March 2017 16:36
--- NOTE | 2017-03-13 17:04 | HHI.PR ---
Subjective Remarks Patient is S/P ORIF right humerus today with Dr. Mendoza Objective Vitals Vital Signs Date Time Temp Pulse Resp B/P (MAP) Pulse Ox O2 Delivery O2 Flow Rate FiO2 03/13/17 16:00 59 03/13/17 14:00 63 03/13/17 12:00 97.6 57 22 127/60 (82) 91 03/13/17 12:00 57 03/13/17 11:30 60 12 127/60 (82) 94 Nasal Cannula 3 03/13/17 11:15 58 13 126/60 (82) 94 Nasal Cannula 3 03/13/17 11:00 61 13 143/64 (90) 95 Nasal Cannula 3 03/13/17 10:45 79 19 150/67 (94) 93 Nasal Cannula 3 03/13/17 10:30 96 24 166/79 (108) 93 Nasal Cannula 3 03/13/17 10:19 97.6 78 22 159/74 (102) 92 Nasal Cannula 3 03/13/17 08:00 () 03/13/17 07:37 98.6 60 15 122/89 (100) 94 03/13/17 07:37 60 03/13/17 06:00 55 03/13/17 04:00 55 03/13/17 04:00 98.6 55 16 151/67 (95) 97 03/13/17 02:00 54 03/13/17 00:00 98.2 51 12 110/56 (74) 96 03/13/17 00:00 51 03/12/17 22:00 52 03/12/17 20:00 97 Nasal Cannula 3.00 03/12/17 20:00 98.9 57 12 116/57 (76) 97 03/12/17 20:00 53 03/12/17 18:00 65 03/13/17 03/13/17 03/14/17 15:00 23:00 07:00 Intake Total 700 ml Output Total 400 ml Balance 300 ml Other 700 ml Output Urine Total 250 ml Estimated Blood Loss 150 ml Result Diagram: 03/12/1771303/12/17713 Other Results Laboratory Tests Test 03/10/17 20:10 03/11/17 04:11 03/11/17 12:10 03/11/17 17:25 White Blood Count 11.5 TH/MM3 Red Blood Count 4.89 MIL/MM3 Hemoglobin 13.2 GM/DL 11.1 GM/DL Hematocrit 40.1 % 32.6 % Mean Corpuscular Volume 82.0 FL Mean Corpuscular Hemoglobin 27.1 PG Mean Corpuscular Hemoglobin Concent 33.0 % Red Cell Distribution Width 14.2 % Platelet Count 209 TH/MM3 Mean Platelet Volume 8.0 FL Neutrophils (%) (Auto) 85.8 % Lymphocytes (%) (Auto) 9.0 % Monocytes (%) (Auto) 4.9 % Eosinophils (%) (Auto) 0.2 % Basophils (%) (Auto) 0.1 % Neutrophils # (Auto) 9.9 TH/MM3 Lymphocytes # (Auto) 1.0 TH/MM3 Monocytes # (Auto) 0.6 TH/MM3 Eosinophils # (Auto) 0.0 TH/MM3 Basophils # (Auto) 0.0 TH/MM3 CBC Comment DIFF FINAL Differential Comment Prothrombin Time 23.8 SEC 17.7 SEC 16.1 SEC 14.7 SEC Prothromb Time International Ratio 2.4 RATIO 1.7 RATIO 1.6 RATIO 1.5 RATIO Activated Partial Thromboplast Time 36.8 SEC 34.8 SEC Blood Urea Nitrogen 23 MG/DL Creatinine 0.75 MG/DL Random Glucose 155 MG/DL Calcium Level 8.7 MG/DL Sodium Level 140 MEQ/L Potassium Level 4.0 MEQ/L Chloride Level 106 MEQ/L Carbon Dioxide Level 25.8 MEQ/L Anion Gap 8 MEQ/L Estimat Glomerular Filtration Rate 75 ML/MIN Test 03/12/17 03:00 03/12/17 07:14 03/13/17 05:31 Prothrombin Time 12.6 SEC 12.0 SEC 11.0 SEC Prothromb Time International Ratio 1.2 RATIO 1.2 RATIO 1.1 RATIO White Blood Count 5.8 TH/MM3 Red Blood Count 4.03 MIL/MM3 Hemoglobin 11.2 GM/DL Hematocrit 32.8 % Mean Corpuscular Volume 81.3 FL Mean Corpuscular Hemoglobin 27.7 PG Mean Corpuscular Hemoglobin Concent 34.1 % Red Cell Distribution Width 14.0 % Platelet Count 142 TH/MM3 Mean Platelet Volume 7.7 FL Neutrophils (%) (Auto) 72.8 % Lymphocytes (%) (Auto) 15.9 % Monocytes (%) (Auto) 8.1 % Eosinophils (%) (Auto) 2.8 % Basophils (%) (Auto) 0.4 % Neutrophils # (Auto) 4.2 TH/MM3 Lymphocytes # (Auto) 0.9 TH/MM3 Monocytes # (Auto) 0.5 TH/MM3 Eosinophils # (Auto) 0.2 TH/MM3 Basophils # (Auto) 0.0 TH/MM3 CBC Comment DIFF FINAL Differential Comment Blood Urea Nitrogen 12 MG/DL Creatinine 0.45 MG/DL Random Glucose 99 MG/DL Calcium Level 8.8 MG/DL Magnesium Level 1.8 MG/DL Sodium Level 140 MEQ/L Potassium Level 3.7 MEQ/L Chloride Level 107 MEQ/L Carbon Dioxide Level 27.4 MEQ/L Anion Gap 6 MEQ/L Estimat Glomerular Filtration Rate 136 ML/MIN Imaging Last Impressions Maxillofacial CT 03/10/171856 Signed Impressions: Service Date/Time: Friday, March 10, 2017 19:47 - CONCLUSION: 1. No acute facial bone fracture. 2. Mild mucosal thickening within the left maxillary sinus and minimal mucosal thickening within the right maxillary sinus. 3. Right-sided nannette bullosa. Alvarez Briscoe MD Head CT 03/10/171856 Signed Impressions: Service Date/Time: Friday, March 10, 2017 19:47 - CONCLUSION: 1. No acute infarct, acute hemorrhage, mass effect or extra axial fluid collections. 2. Mild cerebral atrophy. 3. Mild periventricular and subcortical white matter small vessel ischemic changes bilaterally. Alvarez Briscoe MD Chest X-Ray 03/10/171856 Signed Impressions: Service Date/Time: Friday, March 10, 2017 19:41 - CONCLUSION: Mild cardiomegaly and minimal central pulmonary vascular congestion. Alvarez Briscoe MD Cervical Spine CT 03/10/171856 Signed Impressions: Service Date/Time: Friday, March 10, 2017 19:47 - CONCLUSION: 1. No acute fracture or prevertebral soft tissue swelling. 2. Moderate neural foraminal narrowing bilaterally at C5-6. 3. No bony spinal canal stenosis. 4. Cervical spondylosis at C5-6 and to a lesser extent at C4-5 and C3-4. Alvarez Briscoe MD Radius/Ulna X-Ray 03/10/17 0000 Signed Impressions: Service Date/Time: Friday, March 10, 2017 19:33 - CONCLUSION: 1. No acute fracture or desiccation of the radius or ulna. 2. Moderate osteoarthritis involving the first carpometacarpal joint. Alvarez Briscoe MD Humerus X-Ray 03/10/17 0000 Signed Impressions: Service Date/Time: Friday, March 10, 2017 22:15 - CONCLUSION: Persistent significant displacement of the spiral midshaft fracture of right humerus. Alvarez Briscoe MD Objective Remarks General: NAD, AAOx3 Chest: CTA Cardiac: Regular Abd: +BS, soft ND/NT Ext: RUE post-op dressing present dry and intact, sling present Procedures ORIF right humerus today with Dr. Mendoza A/P Problem List: (1) NSVT (nonsustained ventricular tachycardia) ICD Codes: I47.2 - Ventricular tachycardia Status: Acute Plan: - comgmt with Cardiology - pt had 2 episodes of symptomatic NSVT - Pt underwent LHC (03/12/17) with Dr. Hi - NO hemodynamically significant stenosis seen - metoprolol increased to 50mg BID - Pt cleared by Cardiology for Orthopedic repair (2) Closed right humeral fracture ICD Codes: S42.301A - Unspecified fracture of shaft of humerus, right arm, initial encounter for closed fracture Status: Acute Plan: - Comgmt with Orthopedics, Dr. Mendoza - Pt is a 77 y/o female with atrial fibrillation on chronic anticoagulation with Coumadin. - She presented to the ED at [facility] on 03/10/17 after a trip and fall at home and landed on an outstretched right UE - Pt was found to have an acute displaced spiral midshaft fracture of the right humerus - Pt's INR was reversed with 10mg Vit K & 3 units FFP - INR 1.3 (03/12) - hydrocodone/morphine prn - 03/13/17 ORIF right humerus today with Dr. Mendoza - resume Coumadin once ok with surgery - IS - Constipation precautions - Supportive care - discussed home vs rehab with patient and son. Patient will think about it overnight. - Consult to case management (3) Atrial fibrillation ICD Codes: I48.91 - Unspecified atrial fibrillation Status: Chronic Plan: - metoprolol - Coumadin on hold - INR reversed for surgery - will resume once ok with surgery (4) Hypertension ICD Codes: I10 - Essential (primary) hypertension Status: Chronic Plan: - Pt is on Norvasc 2.5mg po daily, Lisinopril 20mg po BID, and Metoprolol 25mg po BID as an outpt - DC Norvasc - Cont. Metoprolol increased by cardiology due to V tach - Cont. Lisinopril with parameters - Hold Norvasc as BP is low/normal - Pt is also on Lasix which will be held as well. - Monitor BP closely Problem Qualifiers (1) Closed right humeral fracture: Qualified Codes: S42.341A - Displaced spiral fracture of shaft of humerus, right arm, initial encounter for closed fracture (2) Atrial fibrillation: Qualified Codes: I48.0 - Paroxysmal atrial fibrillation Isabella Lyles Mar 13, 2017 17:04
[2017-03-13] MEDS: ceFAZolin 2 GM PREMIX 50 ML IV SCH (17:37)
[2017-03-14 00:32] VITALS: BP 133/60; PULSE 60; RESP 18; TEMP 96.8; O2SAT 97
[2017-03-14] MEDS: ceFAZolin 2 GM PREMIX 50 ML IV SCH ×2 (01:46→09:50)
[2017-03-14 04:09] VITALS: BP 139/86; PULSE 65; RESP 17; TEMP 97.5; O2SAT 97
[2017-03-14] MEDS: ACETAMINOPHEN/HYDROcodone 325 MG/7.5 MG TAB PO PRN ×2 (06:36→13:14)
--- NOTE | 2017-03-14 06:40 | PD.ORT.PN ---
Subjective Subjective Remarks s/p ORIF right humeral shaft fx - POD 1 doing well. reports pain and swelling of arm. states it feels heavy Objective Vitals Vital Signs Date Time Temp Pulse Resp B/P (MAP) Pulse Ox O2 Delivery O2 Flow Rate FiO2 03/14/17 04:09 97.5 65 17 139/86 (103) 97 03/14/17 00:32 96.8 60 18 133/60 (84) 97 03/13/17 20:00 Nasal Cannula 2.00 03/13/17 18:51 97.8 79 17 145/66 (92) 98 03/13/17 18:00 86 03/13/17 17:13 94 Nasal Cannula 3.00 03/13/17 16:00 98.0 86 18 148/67 (94) 94 03/13/17 16:00 59 03/13/17 14:00 63 03/13/17 12:00 97.6 57 22 127/60 (82) 91 03/13/17 12:00 57 03/13/17 11:30 60 12 127/60 (82) 94 Nasal Cannula 3 03/13/17 11:15 58 13 126/60 (82) 94 Nasal Cannula 3 03/13/17 11:00 61 13 143/64 (90) 95 Nasal Cannula 3 03/13/17 10:45 79 19 150/67 (94) 93 Nasal Cannula 3 03/13/17 10:30 96 24 166/79 (108) 93 Nasal Cannula 3 03/13/17 10:19 97.6 78 22 159/74 (102) 92 Nasal Cannula 3 03/13/17 08:00 () 03/13/17 07:37 98.6 60 15 122/89 (100) 94 03/13/17 07:37 60 I/O 03/13/17 03/13/17 03/13/17 03/14/17 03/14/17 03/14/17 07:00 15:00 23:00 07:00 15:00 23:00 Intake Total 0 ml 700 ml 620 ml 240 ml Output Total 200 ml 400 ml 850 ml 350 ml Balance -200 ml 300 ml -230 ml -110 ml Intake Oral 0 ml 620 ml 240 ml Other 700 ml Output Urine Total 200 ml 250 ml 850 ml 350 ml Estimated Blood Loss 150 ml # Bowel Movements 0 0 0 Result Diagram: 03/12/1703/12/17 0714 Imaging Last [address] 03/10/171856 Signed Impressions: Service Date/Time: Friday, March 10, 2017 19:47 - CONCLUSION: 1. No acute facial bone fracture. 2. Mild mucosal thickening within the left maxillary sinus and minimal mucosal thickening within the right maxillary sinus. 3. Right-sided nannette bullosa. Alvarez Briscoe MD Head CT 03/10/171856 Signed Impressions: Service Date/Time: Friday, March 10, 2017 19:47 - CONCLUSION: 1. No acute infarct, acute hemorrhage, mass effect or extra axial fluid collections. 2. Mild cerebral atrophy. 3. Mild periventricular and subcortical white matter small vessel ischemic changes bilaterally. Alvarez Briscoe MD Chest X-Ray 03/10/171856 Signed Impressions: Service Date/Time: Friday, March 10, 2017 19:41 - CONCLUSION: Mild cardiomegaly and minimal central pulmonary vascular congestion. Alvarez Briscoe MD Cervical Spine CT 03/10/171856 Signed Impressions: Service Date/Time: Friday, March 10, 2017 19:47 - CONCLUSION: 1. No acute fracture or prevertebral soft tissue swelling. 2. Moderate neural foraminal narrowing bilaterally at C5-6. 3. No bony spinal canal stenosis. 4. Cervical spondylosis at C5-6 and to a lesser extent at C4-5 and C3-4. Alvarez Briscoe MD Objective Remarks RUE: dressings clean and dry. intact. NVI. Assessment & Plan Assessment and Plan 1) Right mid shaft oblique fracture humerus s/p ORIF - POD 1 -NWB -maintain sling -daily dressing changes POD 2 -ok to transition to primapore/xeroform if drainage minimal -pendulums -CM for rehab placemen -ortho cleared for DC when arrangements made -f/u with Kelyl or PA in 2 weeks Leon Martinez/Supervisor [employer] [facility] Mar 14, 2017 06:40
[2017-03-14] MEDS ORDERED: VITA500012 PO (06:42)
[2017-03-14] MEDS ORDERED: VITA2000 PO (06:42)
[2017-03-14] MEDS ORDERED: HYDR-3580 PO (06:42)
[2017-03-14] MEDS ORDERED: CALCTAB19 PO (06:42)
[2017-03-14 08:00] VITALS: BP 121/74; PULSE 70; RESP 18; TEMP 97.5; O2SAT 98
[2017-03-14 08:14] LABS: AUTOMATED NEUTROPHIL # 5.8 TH/MM3 (1.8-7.7); BASOPHIL % 0.1 % (0.0-2.0); HEMATOCRIT 31.7 % (35.0-46.0); HEMO FLAGS DIFF FINAL; LYMPH % 11.7 % (9.0-44.0); LYMPHOCYTE # 0.8 TH/MM3 (1.0-4.8); MEAN CELL VOLUME 81.3 FL (80.0-100.0); MEAN CORPUSCULAR HGB CONC 34.4 % (32.0-36.0); MONO % 8.4 % (0.0-8.0); NEUT % 79.8 % (16.0-70.0); PLATELET COUNT 180 TH/MM3 (150-450); RED CELL DISTRIBUTION WIDTH 13.6 % (11.6-17.2); WHITE BLOOD COUNT 7.2 TH/MM3 (4.0-11.0)
[2017-03-14 08:20] LABS: BICARBONATE 27.1 MEQ/L (21.0-32.0)
[2017-03-14] MEDS: LISINOPRIL 20 MG TAB PO SCH (09:00)
[2017-03-14] MEDS ORDERED: CHOLECALCIFEROL (VIT D3) 1000 UNIT TAB PO SCH (09:00)
--- NOTE | 2017-03-14 09:02 | HHI.DCPOC ---
Discharge Care Plan Diagnosis: (1) Closed right humeral fracture (2) NSVT (nonsustained ventricular tachycardia) Goals to Promote Your Health * To prevent worsening of your condition and complications * To maintain your health at the optimal level Directions to Meet Your Goals Take your medications as prescribed Follow your dietary instruction Follow activity as directed Keep your appointments as scheduled Take your immunizations and boosters as scheduled If your symptoms worsen call your PCP, if no PCP go to Urgent Care Center or Emergency Room Smoking is Dangerous to Your Health. Avoid second hand smoke Call the 24-hour hour crisis hotline for domestic abuse at Isabella Lyles Mar 14, 2017 09:02
--- NOTE | 2017-03-14 09:05 | HHI.DS ---
Discharge Summary Admission Date Mar 10, 2017 at 23:41 Discharge Date: Mar 14, 2017 Admitting Diagnosis right midshaft humeral fracture (1) NSVT (nonsustained ventricular tachycardia) ICD Codes: I47.2 - Ventricular tachycardia Status: Acute (2) Closed right humeral fracture ICD Codes: S42.301A - Unspecified fracture of shaft of humerus, right arm, initial encounter for closed fracture Status: Acute (3) Atrial fibrillation ICD Codes: I48.91 - Unspecified atrial fibrillation Status: Chronic (4) Hypertension ICD Codes: I10 - Essential (primary) hypertension Status: Chronic Consultants Dr. Kelly Hi Procedures ORIF right humerus today with Dr. Mendoza Cardiac catheterization 03/12/[address] Hi Brief History 77-year-old female presents to the emergency department via EMS for evaluation after a fall that occurred just prior to arrival. Patient states her shoe got caught in the plastic over her crispness tree and she tripped and fell landing on her right arm. She did hit her head, but denies any loss of consciousness. She does have ecchymosis to the right lower eye orbit. She complaints of right arm pain. She has her arm in a splint by EMS. Patient received morphine 6 mg IV prior to arrival for pain. Patient denies any neck pain or back pain. No chest pain or abdominal pain. Nausea, vomiting, diarrhea. She has history of hypertension and atrial fibrillation. She is on Coumadin. Patient denies any hip or pelvic pain. Patient currently rates the pain 6/10 down from 10/10. The pain is stabbing. No radiation. The pain is in the right humerus and right forearm. Moderate severity. Full xrays of neck head no acute abnormalities but xray humerus shows fracture splinted and will require surgery. CBC/BMP: 03/14/17 0710 03/14/17 0710 Significant Findings Laboratory Tests Test 03/11/17 12:10 03/11/17 17:25 03/12/17 03:00 03/12/17 07:14 Hemoglobin 11.1 GM/DL (11.6-15.3) 11.2 GM/DL (11.6-15.3) Hematocrit 32.6 % (35.0-46.0) 32.8 % (35.0-46.0) Prothrombin Time 16.1 SEC (9.8-11.6) 14.7 SEC (9.8-11.6) 12.6 SEC (9.8-11.6) 12.0 SEC (9.8-11.6) Activated Partial Thromboplast Time 34.8 SEC (24.3-30.1) Platelet Count 142 TH/MM3 (150-450) Neutrophils (%) (Auto) 72.8 % (16.0-70.0) Monocytes (%) (Auto) 8.1 % (0.0-8.0) Lymphocytes # (Auto) 0.9 TH/MM3 (1.0-4.8) Creatinine 0.45 MG/DL (0.50-1.00) Test 03/13/17 05:31 03/14/17 07:10 Red Blood Count 3.90 MIL/MM3 (4.00-5.30) Hemoglobin 10.9 GM/DL (11.6-15.3) Hematocrit 31.7 % (35.0-46.0) Neutrophils (%) (Auto) 79.8 % (16.0-70.0) Monocytes (%) (Auto) 8.4 % (0.0-8.0) Lymphocytes # (Auto) 0.8 TH/MM3 (1.0-4.8) Creatinine 0.45 MG/DL (0.50-1.00) Random Glucose 112 MG/DL (74-106) Imaging Last Impressions Humerus X-Ray 03/13/17 0000 Signed Impressions: Service Date/Time: March 09:41 - CONCLUSION: 1. Status post right humeral ORIF in anatomic alignment. Nicola Herzog MD Maxillofacial CT 03/10/171856 Signed Impressions: Service Date/Time: Friday, March 10, 2017 19:47 - CONCLUSION: 1. No acute facial bone fracture. 2. Mild mucosal thickening within the left maxillary sinus and minimal mucosal thickening within the right maxillary sinus. 3. Right-sided nannette bullosa. Alvarez Briscoe MD Head CT 03/10/171856 Signed Impressions: Service Date/Time: Friday, March 10, 2017 19:47 - CONCLUSION: 1. No acute infarct, acute hemorrhage, mass effect or extra axial fluid collections. 2. Mild cerebral atrophy. 3. Mild periventricular and subcortical white matter small vessel ischemic changes bilaterally. Alvarez Briscoe MD Chest X-Ray 03/10/171856 Signed Impressions: Service Date/Time: Friday, March 10, 2017 19:41 - CONCLUSION: Mild cardiomegaly and minimal central pulmonary vascular congestion. Alvarez Briscoe MD Cervical Spine CT 03/10/171856 Signed Impressions: Service Date/Time: Friday, March 10, 2017 19:47 - CONCLUSION: 1. No acute fracture or prevertebral soft tissue swelling. 2. Moderate neural foraminal narrowing bilaterally at C5-6. 3. No bony spinal canal stenosis. 4. Cervical spondylosis at C5-6 and to a lesser extent at C4-5 and C3-4. Alvarez Briscoe MD Radius/Ulna X-Ray 03/10/17 0000 Signed Impressions: Service Date/Time: Friday, March 10, 2017 19:33 - CONCLUSION: 1. No acute fracture or desiccation of the radius or ulna. 2. Moderate osteoarthritis involving the first carpometacarpal joint. Alvarez Briscoe MD PE at Discharge General: NAD, AAOx3 Chest: CTA Cardiac: Regular Abd: +BS, soft ND/NT Ext: RUE post-op dressing present dry and intact, sling present Hospital Course NSVT (nonsustained ventricular tachycardia) - comgmt with Cardiology - pt had 2 episodes of symptomatic NSVT - Pt underwent LHC (03/12/17) with Dr. Hi - NO hemodynamically significant stenosis seen - metoprolol increased to 50mg BID - Pt cleared by Cardiology for Orthopedic repair Closed right humeral fracture - Comgmt with Orthopedics, Dr. Mendoza - Pt is a 77 y/o female with atrial fibrillation on chronic anticoagulation with Coumadin. - She presented to the ED at [facility] on 03/10/17 after a trip and fall at home and landed on an outstretched right UE - Pt was found to have an acute displaced spiral midshaft fracture of the right humerus - Pt's INR was reversed with 10mg Vit K & 3 units FFP - INR 1.3 (03/12) - hydrocodone/morphine prn - 03/13/17 ORIF right humerus today with Dr. Mendoza - resume Coumadin once ok with surgery - IS - Constipation precautions - Supportive care - discussed home vs rehab with patient and son. Patient will think about it overnight. - Consult to case management - cleared by orthopedic surgery for DC- recommendations: RUE -NWB -maintain sling -daily dressing changes POD 2 -ok to transition to primapore/xeroform if drainage minimal -f/u with Kelly or TITO in 2 weeks Atrial fibrillation - metoprolol increased per cardiology after NSVT - Coumadin on hold - INR reversed for surgery - will resume once ok with surgery Hypertension - Pt is on Norvasc 2.5mg po daily, Lisinopril 20mg po BID, and Metoprolol 25mg po BID as an outpt - DC Norvasc - Cont. Metoprolol increased by cardiology due to V tach - Cont. Lisinopril with parameters - Hold Norvasc as BP is low/normal - Pt is also on Lasix which will be held as well. - Monitor BP closely Pt Condition on Discharge: Stable Discharge Disposition: Discharge to SNF Discharge Instructions DIET: Follow Instructions for: Heart Healthy Diet Activities you can perform: See Additionl Instruction Other Activity Instructions: -RUE -NWB -maintain sling -daily dressing changes POD 2 -ok to transition to primapore/xeroform if drainage minimal -f/u with Kelly or [facility]O in 2 weeks Follow up Referrals: Cardiology - [address] Hi Orthopedics - [facility] with Rowdy Mendoza MD PCP Follow-up - [address] Lincoln New Medications: Calcium Carbonate-Vitamin D (Calcium 600+D 200) 600-200 Mg-Unit Tab 1 TAB PO BID for Nutritional Supplement for 30 Days, #60 TAB 0 Refills Cholecalciferol (Vitamin D3) 2,000 Unit Cap 2000 UNITS PO DAILY for Nutritional Supplement, #56 CAP 0 Refills Ergocalciferol (Ergocalciferol) 50,000 Unit Cap 65660 UNITS PO Q7D for Nutritional Supplement, #56 CAP Hydrocodone-Acetaminophen (Hydrocodone-Acetaminophen) 7.5 Mg-325 Mg Tab 1 TAB PO Q4H PRN for PAIN, #60 TAB 0 Refills Metoprolol Tartrate (Metoprolol Tartrate) 25 Mg Tab 50 MG PO BID for heart/ blood pressure, #60 TAB 0 Refills Continued Medications: Furosemide (Lasix) 40 Mg Tab 40 MG PO EVERY OTHER DAY, #30 TAB 0 Refills Lisinopril (Lisinopril) 20 Mg Tab 20 MG PO BID, #30 TAB 0 Refills Potassium Chloride ER (K-Tab) 10 Meq Tab 10 MEQ PO EVERY OTHER DAY for Electrolyte Replacement, #30 TAB 0 Refills Warfarin (Coumadin) 4 Mg Tab 4 MG PO five days a week for Prevent Blood Clot, TAB 0 Refills Warfarin (Warfarin) 5 Mg Tab 5 MG PO two days per week for Blood Clot Prevention, #30 TAB 0 Refills Discontinued Medications: Amlodipine (Amlodipine) 2.5 Mg Tab 2.5 MG PO DAILY for Blood Pressure Management, #30 TAB 0 Refills Metoprolol Tartrate (Metoprolol Tartrate) 25 Mg Tab 25 MG PO BID, #60 TAB 0 Refills Isabella Lyles Mar 14, 2017 09:05
[2017-03-14] MEDS: METOPROLOL TARTRATE 25 MG TAB PO SCH (09:49)
[2017-03-14] MEDS: CALCIUM/VITAMIN D 250 MG/125 U TAB PO SCH ×2 (09:49→13:14)
[2017-03-14] MEDS: DOCUSATE SODIUM 50 MG/SENNA 8.6 MG TAB PO SCH (09:49)
[2017-03-14] MEDS: SODIUM CHLORIDE 0.9% FLUSH 10 ML FLUSH IV FLUSH SCH (09:50)
[2017-03-14 12:00] VITALS: BP 134/66; PULSE 64; RESP 18; TEMP 98.1; O2SAT 96
[2017-03-14] MEDS ORDERED: POTASSIUM CHLORIDE 10 MEQ CONTROLLED RELEASE TAB PO ONE (12:30)
[2017-03-14] MEDS ORDERED: FUROSEMIDE 40 MG TAB PO ONE (12:30)
[2017-03-14] MEDS ORDERED: BISACODYL 10 MG SUPP RECTAL ONE (14:00)
[2017-03-14] MEDS ORDERED: METO25TA3 PO (14:59)
== END 2017-03-14 16:22 | DRG 493 ==
LOC: NEPC 18:33 → NEDA 22:41 → OBSVTOIN 23:41 → N06A 03-11 00:58 → N03B 03-12 07:04 → N06A 03-13 18:43
PROVIDERS: ADMIT Hospitalist; ATTEND Hospitalist
PROC: 30233K1 Transfusion of Nonautologous Frozen Plasma into Peripheral Vein, Percutaneous Approach (ICD-10-PCS; 2017-03-11)
PROC: 0PSF04Z Reposition Right Humeral Shaft with Internal Fixation Device, Open Approach (ICD-10-PCS; principal; 2017-03-13 09:11)
DX: S42.341A Displaced spiral fracture of shaft of humerus, right arm, initial encounter for closed fracture (principal); I47.2 Ventricular tachycardia; I48.92 Unspecified atrial flutter; I11.9 Hypertensive heart disease without heart failure; I47.1 Supraventricular tachycardia; I48.0 Paroxysmal atrial fibrillation; I49.3 Ventricular premature depolarization; M47.892 Other spondylosis, cervical region; W01.0XXA Fall on same level from slipping, tripping and stumbling without subsequent striking against object, initial encounter; Y92.009 Unspecified place in unspecified non-institutional (private) residence as the place of occurrence of the external cause; Z79.01 Long term (current) use of anticoagulants; Z96.653 Presence of artificial knee joint, bilateral
CPT/HCPCS: 36430; 70450; 70486; 71010; 72125; 73060; 76000; 80048; 83735; 85014; 85018; 85025; 85610; 85730; 86850; 86900; 86901; 86927; 93005; 93306; 93458; 99211; C1713; C1769; C1893; G0463; J0131; J0690; J1170; J1580; J1644; J2175; J2250; J2270; J2405; J3010; J3370; J3430; J7050; P9017; Q9967